=== PATIENT | male | born 1935 | race Caucasian/White ===

== ENCOUNTER → 2016-10-24 | Outpatient (CLI) | payer MEDICARE, OTHER ==
[~2016-10-24] MED LIST: ACET325S8 PO; ASPI1TAB69 PO; ASPI81TA82 PO; AVOD0.5C PO; CALC0.25 PO; CALC0.5C6 PO; CARD4TAB2 PO; CIAL5TAB PO; DOCU100C PO; DOK100TA PO; DOXA1TAB43 PO; DUTA1CAP2 PO; FINA5TAB77 PO; FLUO40CA PO; GABA400C5 PO; GABA600T PO; LANSO15 PO; LISI40TA PO; MIRA25TA PO; MIRA50TA PO; PENI500T PO; PENT400 PO; PENT400T19 PO; PERC10TA27 PO; PROZ40CA PO; SENN8.6T19 PO; SENN8.6T8 PO; SIMV20 PO; SIMV20TA PO; TAMS0.4C4 PO; TAMS0.4C67 PO; VESI10TA PO; VESI10TA4 PO; VITA100017 PO; VITA10007 PO; VITA2000 PO; VITA200017 PO
[2016-10-24 13:35] LABS: BASOPHIL % 0.2 % (0.0-2.0); EOSINOPHIL % 0.4 % (0.0-4.0); HEMATOCRIT 27.1 % (39.0-51.0); HEMO FLAGS DIFF FINAL; LYMPH % 14.5 % (9.0-44.0); LYMPHOCYTE # 0.8 TH/MM3 (1.0-4.8); MEAN CELL VOLUME 90.1 FL (80.0-100.0); MEAN CORPUSCULAR HEMOGLOBIN 30.4 PG (27.0-34.0); MEAN CORPUSCULAR HGB CONC 33.7 % (32.0-36.0); MONO % 9.4 % (0.0-8.0); NEUT % 75.5 % (16.0-70.0); PLATELET COUNT 180 TH/MM3 (150-450); WHITE BLOOD COUNT 5.3 TH/MM3 (4.0-11.0)
--- NOTE | 2016-10-25 13:45 | EKG ---
Date Performed: 10/24/2016 Time Performed: 14:08:56 PTAGE: 81 years EKG: Sinus rhythm WITH OCCASIONAL VENTRICULAR PREMATURE COMPLEXES WITH FREQUENT SUPRAVENTRICULAR PREMATURE COMPLEXES M ARKED LEFT AXIS DEVIATION RIGHT BUNDLE BRANCH BLOCK MINIMAL VOLTAGE CRITERIA FOR LVH, CONSIDER NORMAL VARIANT ABNORMAL ECG Since PREVIOUS TRACING , no significant change noted PREVIOUS TRACING 08/03/2012 10.35.50 DOCTOR: Gabriela Kraft Interpretating Date/Time 10/25/2016 13:43:12
== END ==
LOC: CPRE 12:38
PROVIDERS: ATTEND Pain Medicine Interventional Pain Medicine
DX: Z01.812 Encounter for preprocedural laboratory examination (principal); Z01.810 Encounter for preprocedural cardiovascular examination; M96.1 Postlaminectomy syndrome, not elsewhere classified; I49.3 Ventricular premature depolarization; I45.10 Unspecified right bundle-branch block; R94.31 Abnormal electrocardiogram [ECG] [EKG]
CPT/HCPCS: 36415; 84132; 85025; 93005

== ENCOUNTER → 2016-10-31 | Day surgery (SDC) | payer MEDICARE, OTHER ==
[~2016-10-31] VITALS: Ht 175.3 cm; Wt 79.0 kg
[~2016-10-31] MED LIST changes: -ACET325S8 PO; -ASPI81TA82 PO; -AVOD0.5C PO; +BUPIVACAINE/EPINEPHRINE 0.5% PF 30 ML VIAL ONE; -CALC0.25 PO; -CARD4TAB2 PO; -DOK100TA PO; +FAMOTIDINE 20 MG/2 ML VIAL ONE; -FINA5TAB77 PO; -GABA400C5 PO; +LACTATED RINGER'S 1000 ML INJ 1,000 ML ONE; +LIDOCAINE 1%/EPINEPHrine 1:100,000 SOLN 30 ML VIAL ONE; +LIDOCAINE HCL 1% 20 ML VIAL ONE; -MIRA25TA PO; -PENT400 PO; +PROPOFOL 200 MG/20 ML AMP IV ONE; -PROZ40CA PO; -SENN8.6T8 PO; -SIMV20 PO; +SODIUM CHLORIDE 0.9% 20 ML VIAL ONE; +SODIUM CHLORIDE 0.9% INJ 50 ML ONE; -TAMS0.4C67 PO; -VESI10TA4 PO; -VITA100017 PO; -VITA200017 PO; +ceFAZolin INJ 1,000 MG VIAL ONE; +oxyCODONE/ACETAMINOPHEN 5 MG/325 MG TAB ONE
[2016-10-31 11:26] VITALS: BP 174/78; PULSE 64; RESP 16; TEMP 97.7; O2SAT 100
[2016-10-31 15:45] VITALS: BP 132/74; PULSE 89; RESP 16; TEMP 97.6; O2SAT 100
--- NOTE | 2016-11-01 09:18 | RADRPT ---
EXAM DATE/TIME: 10/31/2016 13:46 COMPARISON: SPINE LUMBAR LTD (AP & LAT), December 31, 2014, 6:30. INDICATIONS : Spinal cord stimulator lead placement. MEDICAL HISTORY : None. SURGICAL HISTORY : Fusion, lumbar. ENCOUNTER: Initial ACUITY: 1 day PAIN SCORE: Non-responsive. LOCATION: Thoracic spine. FINDINGS: A single coned down AP view of the lower thoracic spine was obtained and demonstrates a stimulator le ad projected over the central vertebral column. The level of the vertebral bodies cannot be ascertain ed by this single view. CONCLUSION: Stimulator lead projected over the vertebral column. Lukasz Mcknight MD on November 01, 2016 at 9:16 Board Certified Radiologist. This report was verified electronically.
--- NOTE | 2016-11-01 17:30 | MP ---
cc: ELDER ESPARZA M.D. Corrected Copy: 11/03/16 DATE OF SURGERY: 10/31/2016 DATE OF : 1935 PROCEDURE: Implantation of Medtronic magnetic resonance imaging compatible Octrodes for spinal cord stimulation. 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 PROCEDURE NOTE IV was started in the holding area the patient was given IV antibiotics taken to the operating room, placed in the prone position. All pressure points were checked and padded. He was sedated and monitored by Anesthesia. His back was prepped with Chloraprep and draped with sterile drapes. Fluoroscopy then was used to visualize the L1-2 translaminar space. The skin was infiltrated with 1% Xylocaine containing epinephrine and small 3 inch incision was made, then a modified Tuohy needle from the [employer] kit was advanced using fluoroscopic guidance and the [id number] technique into the epidural space at the L1-2 level and then advanced in the cephalad direction along the midline until the cephalad tip of the electrode was at the mid T9 level and the caudal electrodes were at the mid T10 level. At this point the patient was awakened and stimulated with all the electrodes and he was receiving stimulation in the left lower extremity and the right lower extremity, then the patient was resedated and then the stylet was removed from the lead. Fluoroscopy was used to confirm the lead did not move. Then the needle was removed and again the fluoroscopy confirmed that the lead did not move. Then an anchoring device was placed down the lead and anchored to the interspinous ligament using three 2-0 Ethibond sutures. Again fluoroscopy was used to confirm the lead did not move during the anchoring process. Then a small subcutaneous pocket was made around the lead. The lead then was connected to the distal extension wire and secured by tightening an Junior screw and covering the connection with a Silastic cover secured at both ends with 2-0 Ethibond suture. Impedance was checked at the bedside and found to be appropriate in all of the electrodes then the lead was coiled into the subcutaneous pocket and a tunneling device was used to pass the distal extension wires to exit on the patient's left flank. Then the lumbar incision was irrigated with some Betadine closure took place with 3-0 Monocryl in subcuticular tissue and 3-0 nylon on the skin. The incision was covered with sterile adhesive dressings and the patient was taken to the recovery room with stable vital signs. W. MD AMY Jaramillo/ana /2:03 PM /2:49 PM
== END | disposition home or self-care (01) ==
LOC: CSDC 10:03
PROVIDERS: ATTEND Pain Medicine Interventional Pain Medicine
DX: M54.16 Radiculopathy, lumbar region (principal)
CPT/HCPCS: 01936; 63650; 72020; 77003; C1778; J0690; J7120

== ENCOUNTER → 2016-11-07 | Outpatient (CLI) | payer MEDICARE, OTHER ==
[~2016-11-07] MED LIST changes: -BUPIVACAINE/EPINEPHRINE 0.5% PF 30 ML VIAL ONE; -FAMOTIDINE 20 MG/2 ML VIAL ONE; -LACTATED RINGER'S 1000 ML INJ 1,000 ML ONE; -LIDOCAINE 1%/EPINEPHrine 1:100,000 SOLN 30 ML VIAL ONE; -LIDOCAINE HCL 1% 20 ML VIAL ONE; -PROPOFOL 200 MG/20 ML AMP IV ONE; -SODIUM CHLORIDE 0.9% 20 ML VIAL ONE; -SODIUM CHLORIDE 0.9% INJ 50 ML ONE; -ceFAZolin INJ 1,000 MG VIAL ONE; -oxyCODONE/ACETAMINOPHEN 5 MG/325 MG TAB ONE
[2016-11-07 08:11] LABS: AUTOMATED NEUTROPHIL # 2.4 TH/MM3 (1.8-7.7); BASOPHIL % 0.6 % (0.0-2.0); EOSINOPHIL % 0.2 % (0.0-4.0); HEMO FLAGS DIFF FINAL; LYMPH % 22.1 % (9.0-44.0); LYMPHOCYTE # 0.8 TH/MM3 (1.0-4.8); MEAN CELL VOLUME 88.1 FL (80.0-100.0); MEAN CORPUSCULAR HEMOGLOBIN 29.6 PG (27.0-34.0); MEAN CORPUSCULAR HGB CONC 33.6 % (32.0-36.0); NEUT % 64.1 % (16.0-70.0); PLATELET COUNT 214 TH/MM3 (150-450); RED BLOOD COUNT 3.52 MIL/MM3 (4.50-5.90); RED CELL DISTRIBUTION WIDTH 13.9 % (11.6-17.2); WHITE BLOOD COUNT 3.7 TH/MM3 (4.0-11.0)
[2016-11-07 08:42] LABS: ANION GAP 12 MEQ/L (5-15); AST (GOT) 21 U/L (15-37); BICARBONATE 19.9 MEQ/L (21.0-32.0); BLOOD UREA NITROGEN 37 MG/DL (7-18); CHLORIDE 105 MEQ/L (98-107); GLOMERULAR FILTRATION RATE 16 ML/MIN (>89); GLUCOSE,FASTING 101 MG/DL (74-99); POTASSIUM 4.2 MEQ/L (3.5-5.1); SODIUM (NA) 137 MEQ/L (136-145)
[2016-11-07 08:45] LABS: ALKALINE PHOSPHATASE 77 U/L (45-117); ALT (GPT) 16 U/L (12-78); HDL CHOLESTEROL 49.7 MG/DL (40.0-60.0); LDL CHOLESTEROL 129 MG/DL (0-99); TOTAL BILIRUBIN ADULT 0.5 MG/DL (0.2-1.0); URIC ACID 7.5 MG/DL (2.6-7.2)
== END ==
LOC: CLAB 07:43
PROVIDERS: ATTEND Internal Medicine Nephrology
DX: N18.3 Chronic kidney disease, stage 3 (moderate) (principal); E78.5 Hyperlipidemia, unspecified; N25.81 Secondary hyperparathyroidism of renal origin; M10.9 Gout, unspecified
CPT/HCPCS: 36415; 80053; 80061; 83970; 84550; 85025

== ENCOUNTER → 2016-11-10 | Day surgery (SDC) | payer MEDICARE, OTHER ==
[~2016-11-10] VITALS: Ht 175.3 cm; Wt 75.5 kg
[~2016-11-10] MED LIST changes: +BUPIVACAINE/EPINEPHRINE 0.5% PF 30 ML VIAL ONE; +FAMOTIDINE 20 MG/2 ML VIAL ONE; +LACTATED RINGER'S 1000 ML INJ 1,000 ML ONE; +MEPERIDINE HCL 50 MG/ML VIAL ONE; +MIDAZOLAM HCL 2 MG/2 ML VIAL ONE; +PROPOFOL 200 MG/20 ML AMP IV ONE; +SODIUM CHLORIDE 0.9% INJ 100 ML ONE; +SODIUM CHLORIDE 0.9% INJ 50 ML ONE; +VANCOMYCIN 500 MG VIAL ONE; +ceFAZolin INJ 1,000 MG VIAL ONE
[2016-11-10 11:08] VITALS: BP 148/75; PULSE 34; PULSE 66; RESP 20; TEMP 98.1; O2SAT 97
[2016-11-10 13:16] VITALS: TEMP 98
[2016-11-10 14:40] VITALS: BP 203/80; PULSE 54; RESP 16; O2SAT 100
--- NOTE | 2016-11-11 12:57 | MP ---
cc: ELDER ESPARZA M.D. DATE OF SURGERY 11/10/2016 DATE OF 1935 PROCEDURE Implantation of Medtronics dual-channel non-rechargeable pulse generator for spinal cord stimulation. PREPROCEDURE DIAGNOSIS Intractable pain with bilateral lumbar radiculopathy. POSTOPERATIVE DIAGNOSIS Intractable pain with bilateral lumbar radiculopathy. PROCEDURE NOTE IV was started in the holding area. The patient was given IV antibiotics, taken to the operating room, placed in the right lateral decubitus position. All pressure points were checked and padded and he was sedated by anesthesia. Then the distal extension wire in his left flank was prepped with alcohol and cut with sterile scissors. Then the lumbar area and the left abdominal area were prepped with Chloraprep and draped with sterile drapes. The skin was infiltrated over the lumbar incision and in the left subcostal area using 0.5% Marcaine containing epinephrine. Then the lumbar incision was opened and the stimulating lead was exteriorized and the distal extension was disconnected by loosening an Junior screw. Then a small incision was made in the left subcostal area and a subcutaneous pocket was created. The tunneling device was used to tunnel the stimulating lead from the lumbar area to the abdominal subcutaneous pocket where it was connected to a Medtronics dual-channel non-rechargeable pulse generator by tightening the Junior screw. The second port and the pulse generator was closed with a dummy plug also secured with the screw. Then the pulse generator was placed in the subcutaneous pocket and anchored to the underlying fascia using two 2-0 Ethilon sutures. A small amount of Betadine was placed in both incisions and then each incision was closed using 3-0 Monocryl in the subcuticular tissue and 3-0 nylon on the skin. The impedance was checked at the bedside after connecting the pulse generator and all electrodes were functioning except for the third electrode. Then the incisions were covered with sterile adhesive dressings and the patient was taken to the recovery room with stable vital signs. W. MD AMY Jaramillo/LIAM /1:14 PM /12:51 PM
== END | disposition home or self-care (01) ==
LOC: CSDC 10:13
PROVIDERS: ATTEND Pain Medicine Interventional Pain Medicine
DX: M54.16 Radiculopathy, lumbar region (principal); M96.1 Postlaminectomy syndrome, not elsewhere classified; I10 Essential (primary) hypertension; I48.91 Unspecified atrial fibrillation; J44.9 Chronic obstructive pulmonary disease, unspecified
CPT/HCPCS: 00300; 63650; 63685; C1767; J0690; J2175; J2250; J3370; J7120

== ENCOUNTER → 2017-02-14 | Outpatient (CLI) | payer MEDICARE, OTHER ==
[~2017-02-14] MED LIST changes: -BUPIVACAINE/EPINEPHRINE 0.5% PF 30 ML VIAL ONE; -FAMOTIDINE 20 MG/2 ML VIAL ONE; -LACTATED RINGER'S 1000 ML INJ 1,000 ML ONE; -MEPERIDINE HCL 50 MG/ML VIAL ONE; -MIDAZOLAM HCL 2 MG/2 ML VIAL ONE; -PROPOFOL 200 MG/20 ML AMP IV ONE; -SODIUM CHLORIDE 0.9% INJ 100 ML ONE; -SODIUM CHLORIDE 0.9% INJ 50 ML ONE; -VANCOMYCIN 500 MG VIAL ONE; -ceFAZolin INJ 1,000 MG VIAL ONE
[2017-02-14 10:07] LABS: AUTOMATED NEUTROPHIL # 4.6 TH/MM3 (1.8-7.7); BASOPHIL % 0.4 % (0.0-2.0); HEMATOCRIT 29.5 % (39.0-51.0); HEMO FLAGS DIFF FINAL; LYMPH % 14.3 % (9.0-44.0); LYMPHOCYTE # 0.8 TH/MM3 (1.0-4.8); MEAN CELL VOLUME 89.2 FL (80.0-100.0); MEAN CORPUSCULAR HEMOGLOBIN 29.3 PG (27.0-34.0); MEAN CORPUSCULAR HGB CONC 32.8 % (32.0-36.0); MONO % 8.1 % (0.0-8.0); NEUT % 77.2 % (16.0-70.0); PLATELET COUNT 193 TH/MM3 (150-450); RED CELL DISTRIBUTION WIDTH 14.8 % (11.6-17.2); WHITE BLOOD COUNT 5.9 TH/MM3 (4.0-11.0)
[2017-02-14 10:34] LABS: ALKALINE PHOSPHATASE 84 U/L (45-117); ALT (GPT) 23 U/L (12-78); ANION GAP 10 MEQ/L (5-15); AST (GOT) 16 U/L (15-37); BICARBONATE 22.2 MEQ/L (21.0-32.0); BLOOD UREA NITROGEN 42 MG/DL (7-18); CHLORIDE 109 MEQ/L (98-107); GLOMERULAR FILTRATION RATE 19 ML/MIN (>89); GLUCOSE,FASTING 88 MG/DL (74-99); HDL CHOLESTEROL 63.6 MG/DL (40.0-60.0); LDL CHOLESTEROL 122 MG/DL (0-99); POTASSIUM 4.4 MEQ/L (3.5-5.1); SODIUM (NA) 141 MEQ/L (136-145); TOTAL BILIRUBIN ADULT 0.4 MG/DL (0.2-1.0)
== END ==
LOC: CLAB 09:20
PROVIDERS: ATTEND Internal Medicine Nephrology
DX: N18.3 Chronic kidney disease, stage 3 (moderate) (principal); E78.5 Hyperlipidemia, unspecified; N25.81 Secondary hyperparathyroidism of renal origin; M10.9 Gout, unspecified
CPT/HCPCS: 36415; 80053; 80061; 83970; 84100; 85025; 86803; 87340

== ENCOUNTER → 2017-05-09 | Outpatient (CLI) | payer MEDICARE, OTHER ==
[2017-05-09 07:56] LABS: AUTOMATED NEUTROPHIL # 4.3 TH/MM3 (1.8-7.7); BASOPHIL % 0.4 % (0.0-2.0); EOSINOPHIL % 0.1 % (0.0-4.0); HEMATOCRIT 30.8 % (39.0-51.0); HEMO FLAGS DIFF FINAL; LYMPH % 16.8 % (9.0-44.0); MEAN CELL VOLUME 89.8 FL (80.0-100.0); MEAN CORPUSCULAR HEMOGLOBIN 29.8 PG (27.0-34.0); MEAN CORPUSCULAR HGB CONC 33.2 % (32.0-36.0); MONO % 8.7 % (0.0-8.0); PLATELET COUNT 198 TH/MM3 (150-450); RED BLOOD COUNT 3.43 MIL/MM3 (4.50-5.90); RED CELL DISTRIBUTION WIDTH 15.1 % (11.6-17.2); WHITE BLOOD COUNT 5.8 TH/MM3 (4.0-11.0)
[2017-05-09 08:16] LABS: ALT (GPT) 29 U/L (12-78); ANION GAP 9 MEQ/L (5-15); AST (GOT) 22 U/L (15-37); BICARBONATE 21.1 MEQ/L (21.0-32.0); BLOOD UREA NITROGEN 64 MG/DL (7-18); CHLORIDE 111 MEQ/L (98-107); GLOMERULAR FILTRATION RATE 16 ML/MIN (>89); GLUCOSE,FASTING 92 MG/DL (74-99); POTASSIUM 4.4 MEQ/L (3.5-5.1); SODIUM (NA) 141 MEQ/L (136-145)
[2017-05-09 08:19] LABS: ALKALINE PHOSPHATASE 73 U/L (45-117); HDL CHOLESTEROL 71.9 MG/DL (40.0-60.0); LDL CHOLESTEROL 121 MG/DL (0-99); TOTAL BILIRUBIN ADULT 0.4 MG/DL (0.2-1.0); TRANSFERRIN IRON PROFILE 191 MG/DL (200-360)
== END ==
LOC: CLAB 07:11
PROVIDERS: ATTEND Internal Medicine Nephrology
DX: E78.5 Hyperlipidemia, unspecified (principal); N18.3 Chronic kidney disease, stage 3 (moderate); R76.8 Other specified abnormal immunological findings in serum; N25.81 Secondary hyperparathyroidism of renal origin; M10.9 Gout, unspecified; D50.9 Iron deficiency anemia, unspecified
CPT/HCPCS: 36415; 80053; 80061; 82306; 83540; 83550; 83970; 84550; 85025

== ENCOUNTER → 2017-09-05 | Outpatient (CLI) | payer MEDICARE, OTHER ==
[~2017-09-05] MED LIST changes: +CALC0.5C PO; -CALC0.5C6 PO; -DOCU100C PO; +DOCU100C15 PO; -VESI10TA PO; +VESI10TA2 PO
[2017-09-05 08:45] LABS: AUTOMATED NEUTROPHIL # 5.2 TH/MM3 (1.8-7.7); BASOPHIL % 0.4 % (0.0-2.0); EOSINOPHIL % 0.1 % (0.0-4.0); HEMATOCRIT 28.7 % (39.0-51.0); HEMO FLAGS DIFF FINAL; MEAN CELL VOLUME 90.8 FL (80.0-100.0); MEAN CORPUSCULAR HEMOGLOBIN 30.6 PG (27.0-34.0); MEAN CORPUSCULAR HGB CONC 33.8 % (32.0-36.0); MONO % 8.9 % (0.0-8.0); NEUT % 76.6 % (16.0-70.0); PLATELET COUNT 202 TH/MM3 (150-450); RED BLOOD COUNT 3.16 MIL/MM3 (4.50-5.90); RED CELL DISTRIBUTION WIDTH 13.9 % (11.6-17.2); WHITE BLOOD COUNT 6.9 TH/MM3 (4.0-11.0)
[2017-09-05 09:05] LABS: ANION GAP 10 MEQ/L (5-15); AST (GOT) 18 U/L (15-37); BICARBONATE 21.4 MEQ/L (21.0-32.0); BLOOD UREA NITROGEN 52 MG/DL (7-18); CHLORIDE 106 MEQ/L (98-107); GLOMERULAR FILTRATION RATE 17 ML/MIN (>89); GLUCOSE,FASTING 83 MG/DL (74-99); POTASSIUM 4.1 MEQ/L (3.5-5.1); SODIUM (NA) 137 MEQ/L (136-145)
[2017-09-05 09:07] LABS: ALT (GPT) 21 U/L (12-78)
[2017-09-05 09:09] LABS: ALKALINE PHOSPHATASE 75 U/L (45-117); HDL CHOLESTEROL 75.5 MG/DL (40.0-60.0); LDL CHOLESTEROL 88 MG/DL (0-99); TOTAL BILIRUBIN ADULT 0.3 MG/DL (0.2-1.0)
== END ==
LOC: CLAB 08:08
PROVIDERS: ATTEND Internal Medicine Nephrology
DX: I73.9 Peripheral vascular disease, unspecified (principal); N18.4 Chronic kidney disease, stage 4 (severe); D63.1 Anemia in chronic kidney disease
CPT/HCPCS: 36415; 80053; 80061; 83970; 84100; 85025

== ENCOUNTER 2017-12-15 11:19 | Observation (INO) | payer MEDICARE, OTHER ==
[2017-12-15] VITALS (7 sets, daily range): BP systolic 105–152; BP diastolic 50–97; PULSE 65–89; RESP 18–20; TEMP 97.5–98.4; O2SAT 94–100
[~2017-12-15] VITALS: Ht 175.3 cm; Wt 73.2 kg
[~2017-12-15 11:19] MED LIST changes: +LANS15CA PO; -LANSO15 PO; -PENI500T PO
[2017-12-15 12:56] LABS: AUTOMATED NEUTROPHIL # 6.1 TH/MM3 (1.8-7.7); BASOPHIL % 0.3 % (0.0-2.0); EOSINOPHIL % 0.3 % (0.0-4.0); HEMATOCRIT 26.5 % (39.0-51.0); HEMOGLOBIN 8.9 GM/DL (13.0-17.0); LYMPH % 10.4 % (9.0-44.0); LYMPHOCYTE # 0.8 TH/MM3 (1.0-4.8); MEAN CELL VOLUME 88.4 FL (80.0-100.0); MEAN CORPUSCULAR HEMOGLOBIN 29.9 PG (27.0-34.0); MEAN CORPUSCULAR HGB CONC 33.8 % (32.0-36.0); MONO % 8.6 % (0.0-8.0); MONOCYTE # 0.7 TH/MM3 (0-0.9); NEUT % 80.4 % (16.0-70.0); PLATELET COUNT 326 TH/MM3 (150-450); RED CELL DISTRIBUTION WIDTH 15.1 % (11.6-17.2); WHITE BLOOD COUNT 7.6 TH/MM3 (4.0-11.0)
[2017-12-15 13:12] LABS: BICARBONATE 20.6 MEQ/L (21.0-32.0); CALCIUM 8.6 MG/DL (8.5-10.1); CREATININE 3.83 MG/DL (0.60-1.30)
[2017-12-15 13:17] LABS: TROPONIN I 0.08 NG/ML (0.02-0.05)
[2017-12-15] MEDS: RESP: ALBUTEROL 2.5 MG/IPRATROPIUM 0.5 MG NEB (SCH) INH (14:14)
[2017-12-15] MEDS ORDERED: ASPIRIN 81 MG CHEW TAB PO ONE (14:15)
[2017-12-15] MEDS ORDERED: methylPREDNISolone SOD SUCC 125 MG/2 ML VIAL IV PUSH ONE (14:15)
--- NOTE | 2017-12-15 14:21 | PD ---
HPI Chief Complaint: Chest Pain Time Seen by Provider: 13:47 Travel History International Travel<30 days: No Contact w/Intl Traveler<30days: No Traveled to known affect area: No History of Present Illness HPI 82-year-old male presents to the emergency department for evaluation of cough, chest pain that is worse with coughing, generalized abdominal pain that started approximately month ago. He states he was at [facility] on December 08, 2017. At that time he had labs completed, chest x-ray, CT abdomen/ pelvis. Chest x-ray showed no acute cardiopulmonary disease. CT abdomen/ pelvis showed macronodular infiltrate left lower lobe, trace pleural effusions, hiatal hernia containing the upper aspect of the stomach, cholelithiasis, no evidence of biliary obstruction, renal cortical thinning bilaterally, no evidence of obstructive uropathy, mild aneurysmal enlargement of the infrarenal abdominal aorta. According to her labs, his BNP was greater than 35,000. Patient reports left-sided chest pain, worse with coughing. He also reports mild diffuse abdominal pain as well as shortness of breath. No exacerbating or alleviating factors. Moderate severity. Patient has past medical history of anemia secondary to renal failure, atrial fibrillation, BPH, chronic renal failure, depression, elevated cholesterol, duodenal ulcer, gout, hypertension, osteoarthritis, PVD, spinal stenosis with spinal stimulator. PFSH Past Medical History Arthritis: Yes Asthma: No Atrial Fibrillation: Yes Autoimmune Disease: No Blood Disorders: No Anxiety: No Depression: Yes Heart Rhythm Problems: No Cancer: No Cardiovascular Problems: No High Cholesterol: Yes Chemotherapy: No Chest Pain: No COPD: Yes Cerebrovascular Accident: Yes (tia) Diabetes: No Endocrine: No Gastrointestinal Disorders: No (ACID REFLUX, DISTANT HX OF ULCER) GERD: Yes Glaucoma: No Genitourinary: No Headaches: No Hepatitis: No Hiatal Hernia: No Heparin Induced Thrombocytopen: No Hypertension: Yes Immune Disorder: No Kidney Stones: No Medical other: Yes (RECENT COLD, PT. ON PCN) Musculoskeletal: Yes (ARTHRITIS) Neurologic: No Psychiatric: No Reproductive: No Respiratory: No Migraines: No Radiation Therapy: No Renal Failure: No Seizures: No Sickle Cell Disease: No Sleep Apnea: No Thyroid Disease: No Ulcer: Yes Past Surgical History Abdominal Surgery: No AICD: No Arteriovenous Shunt: No Body Medical Devices: CERVICAL AND LUMBAR FUSION, LEADS FOR SPINAL CORD STIMULATOR Cardiac Surgery: Yes (CAROITID ENDARTERECTOMY LEFT) Endocrine Surgery: No Eye Surgery: Yes (BILAT. CATARACT SX) Genitourinary Surgery: No Insulin Pump: No Joint Replacement: No Neurologic Surgery: No Oral Surgery: Yes (DENTAL SX) Pacemaker: No Thoracic Surgery: Yes Other Surgery: Yes (2000 &2001 l4, [id number], 50,s cyst) Social History Alcohol Use: Yes (WINE) Tobacco Use: No Substance Use: No Allergies-Medications (Allergen,Severity, Reaction): Coded Allergies: oxybutynin (Unverified Allergy, Severe, MOUTH BURNING, 10/04/17) terbinafine (Unverified Allergy, Severe, Rash, 10/04/17) ONLY ORAL, TOPICAL OK TO USE Reported Meds & Prescriptions Reported Meds & Active Scripts Active Reported Lansoprazole 15 Mg Capdr 15 Mg PO DAILY Percocet (Oxycodone-Acetaminophen) 10-325 mg Tab 1 Tab PO Q6H PRN Senna-S 8.6-50 mg (Sennosides-Docusate Sodium) 1 Tab Tab 1 Tab PO DAILY Aspirin 81 Mg Tabdr 81 Mg PO DAILY Vitamin D3 (Cholecalciferol) 2,000 Unit Cap 2,000 Units PO DAILY Docusate Sodium 100 Mg Cap 100 Mg PO DAILY Vitamin C (Ascorbic Acid) 1,000 Mg Tab 1,000 Mg PO DAILY Lisinopril 40 Mg Tab 40 Mg PO DAILY Doxazosin (Doxazosin Mesylate) 8 Mg Tab 8 Mg PO DAILY Simvastatin 20 Mg Tab 20 Mg PO DAILY Calcitriol 0.5 Mcg Cap 0.5 Mcg PO DAILY Cialis (Tadalafil) 5 Mg Tab 5 Mg PO DAILY Do not exceed 1 dose/day. Myrbetriq (Mirabegron) 50 Mg Tab 50 Mg PO DAILY Vesicare (Solifenacin) 10 Mg Tab 10 Mg PO DAILY Dutasteride 0.5 Mg Cap 0.5 Mg PO DAILY Fluoxetine (Fluoxetine HCl) 40 Mg Cap 40 Cap PO DAILY Tamsulosin (Tamsulosin HCl) 0.4 Mg Cap 0.4 Mg PO HS Gabapentin 600 Mg Tab 300 Mg PO BID Review of Systems Except as stated in HPI: all other systems reviewed are Neg Physical Exam Narrative GENERAL: Well-nourished, well-developed elderly male patient, afebrile. SKIN: Focused skin assessment warm/dry. HEAD: Normocephalic. Atraumatic. EYES: No scleral icterus. No injection or drainage. NECK: Supple, trachea midline. No JVD or lymphadenopathy. CARDIOVASCULAR: Regular rate and rhythm without murmurs, gallops, or rubs. RESPIRATORY: Breath sounds equal bilaterally. No accessory muscle use. Lungs sounds with diffuse rhonchi and expiratory wheezes throughout. GASTROINTESTINAL: Abdomen soft, non-tender, nondistended. MUSCULOSKELETAL: No cyanosis, or edema. BACK: Nontender without obvious deformity. No CVA tenderness. Data Data Last Documented VS Vital Signs Date Time Temp Pulse Resp B/P (MAP) Pulse Ox O2 Delivery O2 Flow Rate FiO2 12/15/17 14:18 99 Room Air 12/15/17 14:18 65 131/65 (87) 129/68 (88) 12/15/17 14:18 18 12/15/17 11:38 98.4 Orders Orders Electrocardiogram (12/15/17 11:36) Complete Blood Count With Diff (12/15/17 11:36) Basic Metabolic Panel (Bmp) (12/15/17 11:36) Ckmb (Isoenzyme) Profile (12/15/17 11:36) Troponin I (12/15/17 11:36) Electrocardiogram (12/15/17 14:06) B-Type Natriuretic Peptide (12/15/17 14:06) Magnesium (Mg) (12/15/17 14:06) Prothrombin Time / Inr (Pt) (12/15/17 14:06) Act Partial Throm Time (Ptt) (12/15/17 14:06) Chest, Single Ap (12/15/17 14:06) Ecg Monitoring (12/15/17 14:06) Bilateral Bp Monitoring (12/15/17 14:06) Iv Access Insert/Monitor (12/15/17 14:06) Oximetry (12/15/17 14:06) Oxygen Administration (12/15/17 14:06) Aspirin Chew (Aspirin Chew) (12/15/17 14:15) Sodium Chloride 0.9% Flush (Ns Flush) (12/15/17 14:15) Lactic Acid Sepsis Protocol (12/15/17 14:06) Blood Culture (12/15/17 14:06) Methylprednisolone So Succ Inj (Solumedr (12/15/17 14:15) Albuterol-Ipratropium Neb (Duoneb Neb) (12/15/17 14:15) Furosemide Inj (Lasix Inj) (12/15/17 16:30) Furosemide Inj (Lasix Inj) (12/16/17 09:00) Ceftriaxone Inj (Rocephin Inj) (12/15/17 16:30) Azithromycin Inj (Zithromax Inj) (12/15/17 16:30) Urinalysis - C+S If Indicated (12/15/17 16:37) Intake + Output 06,14,22 (12/15/17 16:37) Admit Order (Ed Use Only) (12/15/17 16:44) Labs Laboratory Tests Test 12/15/17 11:53 12/15/17 14:19 White Blood Count 7.6 TH/MM3 Red Blood Count 3.00 MIL/MM3 Hemoglobin 8.9 GM/DL Hematocrit 26.5 % Mean Corpuscular Volume 88.4 FL Mean Corpuscular Hemoglobin 29.9 PG Mean Corpuscular Hemoglobin Concent 33.8 % Red Cell Distribution Width 15.1 % Platelet Count 326 TH/MM3 Mean Platelet Volume 8.0 FL Neutrophils (%) (Auto) 80.4 % Lymphocytes (%) (Auto) 10.4 % Monocytes (%) (Auto) 8.6 % Eosinophils (%) (Auto) 0.3 % Basophils (%) (Auto) 0.3 % Neutrophils # (Auto) 6.1 TH/MM3 Lymphocytes # (Auto) 0.8 TH/MM3 Monocytes # (Auto) 0.7 TH/MM3 Eosinophils # (Auto) 0.0 TH/MM3 Basophils # (Auto) 0.0 TH/MM3 CBC Comment DIFF FINAL Differential Comment Blood Urea Nitrogen 42 MG/DL Creatinine 3.83 MG/DL Random Glucose 115 MG/DL Calcium Level 8.6 MG/DL Sodium Level 137 MEQ/L Potassium Level 4.1 MEQ/L Chloride Level 107 MEQ/L Carbon Dioxide Level 20.6 MEQ/L Anion Gap 9 MEQ/L Estimat Glomerular Filtration Rate 15 ML/MIN Total Creatine Kinase 94 U/L Troponin I 0.08 NG/ML Prothrombin Time 10.5 SEC Prothromb Time International Ratio 1.0 RATIO Activated Partial Thromboplast Time 26.1 SEC Lactic Acid Level 1.4 mmol/L Magnesium Level 2.0 MG/DL B-Type Natriuretic Peptide 2228 PG/ML MDM Medical Decision Making Medical Screen Exam Complete: Yes Emergency Medical Condition: Yes Medical Record Reviewed: Yes Interpretation(s) Last Impressions Chest X-Ray 12/15/17 1406 Signed Impressions: Service Date/Time: Friday, December 15, 2017 14:26 - CONCLUSION: Cardiomegaly with mild failure. Brenden He MD FACR Differential Diagnosis Pneumonia versus CHF versus ACS versus failed outpatient treatment Narrative Course 82-year-old elderly male presents to the emergency department for evaluation of cough, chest pain, abdominal pain that started one month ago. Patient patient was diagnosed with pneumonia one week ago and was started on Z-Ruddy. He states symptoms are worsening. EKG shows sinus rhythm with occasional PVCs, right bundle branch block. CBC, BMP, CK, troponin, BNP, magnesium, lactic acid, PTT, PT/INR, blood cultures 2, chest x-ray are ordered and pending. Patient states he took aspirin 81 mg today. Patient is given DuoNeb 2, aspirin 81 mg by mouth , and Solu-Medrol 125 mg IV. CBC shows anemia with hemoglobin 8.9, hematocrit 26.5. BMP shows BUN 42, creatinine 3.83, glucose 115. CK is 94. Troponin is 0.08. BNP is 2228. Magnesium is 2.0. Lactic acid is 1.4. Coags are unremarkable. Chest x-ray shows cardiomegaly with mild failure. Dr. Browne, junior legal secretary, saw patient in the emergency department as this is his patient. He ordered Lasix. Dr. Olsen accepted admission. Diagnosis Primary Impression: Pneumonia Qualified Codes: J18.1 - Lobar pneumonia, unspecified organism Additional Impressions: CHF (congestive heart failure) Qualified Codes: I50.9 - Heart failure, unspecified Chronic kidney disease, stage IV (severe) Admitting Information Admitting Physician Requests: Admit MerrittArely Dec 15, 2017 14:21
--- NOTE | 2017-12-15 14:56 | RADRPT ---
EXAM DATE/TIME: 12/15/2017 14:26 [facility] COMPARISON: CHEST SINGLE AP, January 04, 2015, 17:32. INDICATIONS : Shortness of breath and cough. MEDICAL HISTORY : None. SURGICAL HISTORY : None. ENCOUNTER: Initial ACUITY: 1 day PAIN SCORE: 2/10 LOCATION: Bilateral chest FINDINGS: Cardiomegaly with mild interstitial edema. The thoracic aorta is tortuous and uncoiled. There is no consolidation, pleural effusion or pneumothorax. Spinal stimulator is evident. The portion of the b kenneth skeleton visualized is unremarkable. CONCLUSION: Cardiomegaly with mild failure. Brenden He MD FACR on December 15, 2017 at 14:52 Board Certified Radiologist. This report was verified electronically.
[2017-12-15 15:24] LABS: PROTHROMBIN TIME - PATIENT 10.5 SEC (9.8-11.6)
[2017-12-15] MEDS ORDERED: cefTRIAXone INJ 1,000 MG in SODIUM CHLORIDE 0.9% INJ 100 ML IV ONE (16:30)
[2017-12-15] MEDS ORDERED: AZITHROMYCIN INJ 500 MG in SODIUM CHLOR 0.9% 250 ML INJ 250 ML IV ONE (16:30)
[2017-12-15] MEDS ORDERED: FUROSEMIDE 100 MG/10 ML VIAL IV PUSH ONE (16:30)
--- NOTE | 2017-12-15 16:37 | PD.CONS ---
HPI Service Nephrology Consult Requested By Reason for Consult Hx CKD 4 Primary Care Physician Randy Kelly MD History of Present Illness This is an 82 y/o male with A fib, HTN, anemia, and CKD 4. His baseline creatinine is 3.5, GFR 17, from September. He presents today with shortness of breath, abd and chest wall pain with coughing x 1 month. Was seen in ER at [facility] last week, was given antibiotics and sent home. He is afebrile, not in distress. Chest xray suggesting CHF not pneumonia. We were consulted to assist. His renal function is close to his baseline. (Sofia Arzate) Review of Systems Constitutional: COMPLAINS OF: Fatigue, DENIES: Weight gain, Weight loss, Change in appetite Respiratory: COMPLAINS OF: Cough, Sputum production, Shortness of breath, DENIES: Snoring, Wheezing Neurologic: COMPLAINS OF: Paresthesias, DENIES: Localized weakness (Sofia Arzate) Past Family Social History Allergies: Coded Allergies: oxybutynin (Unverified Allergy, Severe, MOUTH BURNING, 10/04/17) terbinafine (Unverified Allergy, Severe, Rash, 10/04/17) ONLY ORAL, TOPICAL OK TO USE Past Medical History CKD 4, baseline creatinine 3.5, GFR 17 HTN A fib s/p CEA left, TIA ANemia BPH GERD Infrarenal AAA Arthritis Depression Past Surgical History Cervical and lumbar fusion Spinal stimulator Cataract removal bilaterally Reported Medications Lansoprazole 15 Mg Capdr 15 Mg PO DAILY Percocet (Oxycodone-Acetaminophen) 10-325 mg Tab 1 Tab PO Q6H PRN Senna-S 8.6-50 mg (Sennosides-Docusate Sodium) 1 Tab Tab 1 Tab PO DAILY Aspirin 81 Mg Tabdr 81 Mg PO DAILY Vitamin D3 (Cholecalciferol) 2,000 Unit Cap 2,000 Units PO DAILY Docusate Sodium 100 Mg Cap 100 Mg PO DAILY Vitamin C (Ascorbic Acid) 1,000 Mg Tab 1,000 Mg PO DAILY Lisinopril 40 Mg Tab 40 Mg PO DAILY Doxazosin (Doxazosin Mesylate) 8 Mg Tab 8 Mg PO DAILY Simvastatin 20 Mg Tab 20 Mg PO DAILY Calcitriol 0.5 Mcg Cap 0.5 Mcg PO DAILY Cialis (Tadalafil) 5 Mg Tab 5 Mg PO DAILY Do not exceed 1 dose/day. Myrbetriq (Mirabegron) 50 Mg Tab 50 Mg PO DAILY Vesicare (Solifenacin) 10 Mg Tab 10 Mg PO DAILY Dutasteride 0.5 Mg Cap 0.5 Mg PO DAILY Fluoxetine (Fluoxetine HCl) 40 Mg Cap 40 Cap PO DAILY Pentoxifylline CR (Pentoxifylline) 400 Mg Tab 400 Mg PO TID Tamsulosin (Tamsulosin HCl) 0.4 Mg Cap 0.4 Mg PO HS Gabapentin 600 Mg Tab 300 Mg PO BID Active Ordered Medications None Family History Non contributory Social History former smoker He is single, lives in [facility] Full code He is ambulatory (Sofia Arzate) Physical Exam Vital Signs Vital Signs Date Time Temp Pulse Resp B/P (MAP) Pulse Ox O2 Delivery O2 Flow Rate FiO2 12/15/17 14:18 99 Room Air 12/15/17 14:18 65 131/65 (87) 129/68 (88) 12/15/17 14:18 18 100 Room Air 12/15/17 14:03 69 18 99 Room Air 12/15/17 13:55 66 18 131/65 (87) 100 Room Air 12/15/17 11:38 98.4 78 18 105/50 (68) 98 Physical Exam Pleaseant elderly male Awake/alert, not in distress Lungs with rales, rhonchi, on oxygen S1/S2, irreg irreg, no murmur ext: trace edema, Skin: intact Laboratory Laboratory Tests Test 12/15/17 11:53 12/15/17 14:19 White Blood Count 7.6 Red Blood Count 3.00 Hemoglobin 8.9 Hematocrit 26.5 Mean Corpuscular Volume 88.4 Mean Corpuscular Hemoglobin 29.9 Mean Corpuscular Hemoglobin Concent 33.8 Red Cell Distribution Width 15.1 Platelet Count 326 Mean Platelet Volume 8.0 Neutrophils (%) (Auto) 80.4 Lymphocytes (%) (Auto) 10.4 Monocytes (%) (Auto) 8.6 Eosinophils (%) (Auto) 0.3 Basophils (%) (Auto) 0.3 Neutrophils # (Auto) 6.1 Lymphocytes # (Auto) 0.8 Monocytes # (Auto) 0.7 Eosinophils # (Auto) 0.0 Basophils # (Auto) 0.0 CBC Comment DIFF FINAL Differential Comment Blood Urea Nitrogen 42 Creatinine 3.83 Random Glucose 115 Calcium Level 8.6 Sodium Level 137 Potassium Level 4.1 Chloride Level 107 Carbon Dioxide Level 20.6 Anion Gap 9 Estimat Glomerular Filtration Rate 15 Total Creatine Kinase 94 Troponin I 0.08 Prothrombin Time 10.5 Prothromb Time International Ratio 1.0 Activated Partial Thromboplast Time 26.1 Lactic Acid Level 1.4 Magnesium Level 2.0 B-Type Natriuretic Peptide 2228 Date/Time Source Procedure Growth Status 12/15/17 14:19 Blood Peripheral Aerobic Blood Culture Pending Received 12/15/17 14:19 Blood Peripheral Anaerobic Blood Culture Pending Received (Sofia Arzate) Result Diagram: 12/15/17 1153 12/15/17 1153 Imaging Last 72 hours Impressions Chest X-Ray 12/15/17 1406 Signed Impressions: Service Date/Time: Friday, December 15, 2017 14:26 - CONCLUSION: Cardiomegaly with mild failure. Brenden He MD FACR (Sofia Arzate) Assessment and Plan Problem List: (1) Chronic kidney disease, stage IV (severe) ICD Codes: N18.4 - Chronic kidney disease, stage 4 (severe) Plan: His baseline runs 3.5, GFR 17 He is not far from his baseline, non oliguric currently He is not in need of dialysis at this time, he has been educated outpatient and is leaning towards PD Start diuretics, resume home medications IVF not required Repeat labs in AM , obtain UA Avoid nephrotoxins. (2) Shortness of breath ICD Codes: R06.02 - Shortness of breath Plan: Chest xray reviewed. More CHF in nature than pneumonia. No evidence of infections. start lasix, give 80 mg IV today, then 40 mg from tomorrow Low Na diet discussed, fluidr restriction also discussed (Soifa Arzate) Assessment and Plan patient was seen and examined. Patient with advanced renal dysfunction presents with fluid overload. Has history of atrial fibrillation, PAD, s/p left CEA. He is nearing need for dialysis, has decided to chose PD when renal replacement therapy becomes necessary. Start IV diuretic. Monitor his response. Avoid nephrotoxic agents. (Joel Saenz MD) oSfia Arzate Dec 15, 2017 16:37 Joel Saenz MD Dec 15, 2017 20:03
--- NOTE | 2017-12-15 16:40 | PD ---
Physical Exam Narrative I, Dr. Macias, have reviewed the advance practice practitioner's documentation and am in agreement, met with the patient face to face, made the diagnosis, and the medical decision making was done by me. *My assessment and Findings: CHF vs. ACS vs. pneumonia 82yo M here with worsening sob and chest pain after being discharge from [facility] a week ago. Said he finish his azithromycin. Labs reviewed, no leukocytosis. H/H 8.9/26.5 which is slightly lower than baseline. BUN/ creatinine elevated at 42/3.83. Lactic acid normal. Troponin mildly elevated at 0.08 which may be secondary to CHF since BNP is elevated at 2228. CXR showed cardiomegaly and mild failure. Pt was seen by his neprhologist in the ED and ordered lasix 80mg IV. Pt admitted for CHF exacerbation. Data Data Last Documented VS Vital Signs Date Time Temp Pulse Resp B/P (MAP) Pulse Ox O2 Delivery O2 Flow Rate FiO2 12/15/17 14:18 99 Room Air 12/15/17 14:18 65 131/65 (87) 129/68 (88) 12/15/17 14:18 18 12/15/17 11:38 98.4 Orders Orders Electrocardiogram (12/15/17 11:36) Complete Blood Count With Diff (12/15/17 11:36) Basic Metabolic Panel (Bmp) (12/15/17 11:36) Ckmb (Isoenzyme) Profile (12/15/17 11:36) Troponin I (12/15/17 11:36) Electrocardiogram (12/15/17 14:06) B-Type Natriuretic Peptide (12/15/17 14:06) Magnesium (Mg) (12/15/17 14:06) Prothrombin Time / Inr (Pt) (12/15/17 14:06) Act Partial Throm Time (Ptt) (12/15/17 14:06) Chest, Single Ap (12/15/17 14:06) Ecg Monitoring (12/15/17 14:06) Bilateral Bp Monitoring (12/15/17 14:06) Iv Access Insert/Monitor (12/15/17 14:06) Oximetry (12/15/17 14:06) Oxygen Administration (12/15/17 14:06) Aspirin Chew (Aspirin Chew) (12/15/17 14:15) Sodium Chloride 0.9% Flush (Ns Flush) (12/15/17 14:15) Lactic Acid Sepsis Protocol (12/15/17 14:06) Blood Culture (12/15/17 14:06) Methylprednisolone So Succ Inj (Solumedr (12/15/17 14:15) Albuterol-Ipratropium Neb (Duoneb Neb) (12/15/17 14:15) Furosemide Inj (Lasix Inj) (12/15/17 16:30) Furosemide Inj (Lasix Inj) (12/16/17 09:00) Ceftriaxone Inj (Rocephin Inj) (12/15/17 16:30) Azithromycin Inj (Zithromax Inj) (12/15/17 16:30) Urinalysis - C+S If Indicated (12/15/17 16:37) Intake + Output 06,14,22 (12/15/17 16:37) Admit Order (Ed Use Only) (12/15/17 16:44) Labs Laboratory Tests Test 12/15/17 11:53 12/15/17 14:19 White Blood Count 7.6 TH/MM3 Red Blood Count 3.00 MIL/MM3 Hemoglobin 8.9 GM/DL Hematocrit 26.5 % Mean Corpuscular Volume 88.4 FL Mean Corpuscular Hemoglobin 29.9 PG Mean Corpuscular Hemoglobin Concent 33.8 % Red Cell Distribution Width 15.1 % Platelet Count 326 TH/MM3 Mean Platelet Volume 8.0 FL Neutrophils (%) (Auto) 80.4 % Lymphocytes (%) (Auto) 10.4 % Monocytes (%) (Auto) 8.6 % Eosinophils (%) (Auto) 0.3 % Basophils (%) (Auto) 0.3 % Neutrophils # (Auto) 6.1 TH/MM3 Lymphocytes # (Auto) 0.8 TH/MM3 Monocytes # (Auto) 0.7 TH/MM3 Eosinophils # (Auto) 0.0 TH/MM3 Basophils # (Auto) 0.0 TH/MM3 CBC Comment DIFF FINAL Differential Comment Blood Urea Nitrogen 42 MG/DL Creatinine 3.83 MG/DL Random Glucose 115 MG/DL Calcium Level 8.6 MG/DL Sodium Level 137 MEQ/L Potassium Level 4.1 MEQ/L Chloride Level 107 MEQ/L Carbon Dioxide Level 20.6 MEQ/L Anion Gap 9 MEQ/L Estimat Glomerular Filtration Rate 15 ML/MIN Total Creatine Kinase 94 U/L Troponin I 0.08 NG/ML Prothrombin Time 10.5 SEC Prothromb Time International Ratio 1.0 RATIO Activated Partial Thromboplast Time 26.1 SEC Lactic Acid Level 1.4 mmol/L Magnesium Level 2.0 MG/DL B-Type Natriuretic Peptide 2228 PG/ML MDM Supervised Visit with JEANNIE: Yes Interpretation(s) EKG: NSR 69bpm. RBBB unchanged from prior. PVC. Diagnosis Primary Impression: CHF (congestive heart failure) Admitting Information Admitting Physician Requests: Suad Park DO Dec 15, 2017 16:40
[2017-12-15] MEDS ORDERED: ACETAMINOPHEN/HYDROcodone 325 MG/5 MG TAB PO PRN (17:30)
[2017-12-15] MEDS ORDERED: MORPHINE SULFATE 2 MG/ML INJ IV PUSH PRN (17:30)
[2017-12-15] MEDS ORDERED: NALOXONE HCL 0.4 MG/ML AMP IV PUSH PRN (17:30)
[2017-12-15] MEDS ORDERED: ACETAMINOPHEN 325 MG TAB PO PRN (17:30)
[2017-12-15] MEDS ORDERED: MAGNESIUM HYDROXIDE SUSP 30 ML CUP PO PRN (17:30)
[2017-12-15] MEDS ORDERED: SENNOSIDES 8.6 MG TAB PO PRN (17:30)
[2017-12-15] MEDS ORDERED: ONDANSETRON HCL 4 MG/2 ML VIAL IVP PRN (17:30)
--- NOTE | 2017-12-15 19:08 | HHI.HP ---
HPI Service [facility] Primary Care Physician Randy Kelly MD Admission Diagnosis pneumonia, new onset CHF, elevated troponin, CRF Diagnoses: Chief Complaint: Short of breath Travel History International Travel<30 Days: No Contact w/Intl Traveler <30 Da: No Traveled to Known Affected Are: No History of Present Illness 82 years old male presented to the ED complaining of worsening short of breath, chest discomfort with dry cough, patient was at [place] treated recently at the local hospital for CHF and what he said pneumonia, currently he denies any fever or chills, phlegm production, in ED here he was found to have high BNP, nephrology consulted in ED he placed patient on 80 mg of Lasix IV. Chest x-ray showed cardiomegaly BUN/creatinine showed 42/3.83. Patient denied H/O osteopenia or PND, reported occasional leg swelling. Review of Systems All systems reviewed and was positive for what is mentioned in history of present illness otherwise negative Past Family Social History Past Medical History History of back surgery 6 Hypertension Hyperlipidemia History of TIA due to left carotid stenosis patient status post CEA on the left side Past Surgical History As above Allergies: Coded Allergies: oxybutynin (Unverified Allergy, Severe, MOUTH BURNING, 10/04/17) terbinafine (Unverified Allergy, Severe, Rash, 10/04/17) ONLY ORAL, TOPICAL OK TO USE Family History Patient reported his father had a heart attack in his 54 years old Social History Patient quit smoking 40 years ago and he smoked for 30 years, he drinks wine 5 times a month Physical Exam Vital Signs Vital Signs Date Time Temp Pulse Resp B/P (MAP) Pulse Ox O2 Delivery O2 Flow Rate FiO2 12/15/17 16:53 81 18 146/69 (94) 96 Room Air 12/15/17 14:18 99 Room Air 12/15/17 14:18 65 131/65 (87) 129/68 (88) 12/15/17 14:18 18 100 Room Air 12/15/17 14:03 69 18 99 Room Air 12/15/17 13:55 66 18 131/65 (87) 100 Room Air 12/15/17 11:38 98.4 78 18 105/50 (74) 98 Physical Exam GENERAL: This is a well-nourished, well-developed patient, in no apparent distress. SKIN: No rashes, warm and dry HEAD: Atraumatic. Normocephalic. EYES: Pupils equal round and reactive. Extraocular motions intact. No scleral icterus. ENT: Nose without bleeding, or drainage, Airway patent. NECK: Trachea midline. Supple CARDIOVASCULAR: Regular with ectopy RESPIRATORY: Bibasilar crackles. GASTROINTESTINAL: Abdomen soft, non-tender, nondistended. Positive bowel sounds MUSCULOSKELETAL: Extremities without clubbing, cyanosis, or edema. Pedal pulses appreciated NEUROLOGICAL: Awake and alert. Moves all extremity. Normal speech.no focal neurological deficit Laboratory Laboratory Tests Test 12/15/17 11:53 12/15/17 14:19 White Blood Count 7.6 Red Blood Count 3.00 Hemoglobin 8.9 Hematocrit 26.5 Mean Corpuscular Volume 88.4 Mean Corpuscular Hemoglobin 29.9 Mean Corpuscular Hemoglobin Concent 33.8 Red Cell Distribution Width 15.1 Platelet Count 326 Mean Platelet Volume 8.0 Neutrophils (%) (Auto) 80.4 Lymphocytes (%) (Auto) 10.4 Monocytes (%) (Auto) 8.6 Eosinophils (%) (Auto) 0.3 Basophils (%) (Auto) 0.3 Neutrophils # (Auto) 6.1 Lymphocytes # (Auto) 0.8 Monocytes # (Auto) 0.7 Eosinophils # (Auto) 0.0 Basophils # (Auto) 0.0 CBC Comment DIFF FINAL Differential Comment Blood Urea Nitrogen 42 Creatinine 3.83 Random Glucose 115 Calcium Level 8.6 Sodium Level 137 Potassium Level 4.1 Chloride Level 107 Carbon Dioxide Level 20.6 Anion Gap 9 Estimat Glomerular Filtration Rate 15 Total Creatine Kinase 94 Troponin I 0.08 Prothrombin Time 10.5 Prothromb Time International Ratio 1.0 Activated Partial Thromboplast Time 26.1 Lactic Acid Level 1.4 Magnesium Level 2.0 B-Type Natriuretic Peptide 2228 Date/Time Source Procedure Growth Status 12/15/17 14:19 Blood Peripheral Aerobic Blood Culture Pending Received 12/15/17 14:19 Blood Peripheral Anaerobic Blood Culture Pending Received Result Diagram: 12/15/17 1153 12/15/17 1153 Imaging Last Impressions Chest X-Ray 12/15/17 1406 Signed Impressions: Service Date/Time: Friday, December 15, 2017 14:26 - CONCLUSION: Cardiomegaly with mild failure. Brenden He MD FACR Caprini VTE Risk Assessment Caprini VTE Risk Assessment: Mod/High Risk (score >= 2) Caprini Risk Assessment Model Point Value = 1 Point Value = 2 Point Value = 3 Point Value = 5 Age 41-60 Minor surgery BMI > 25 kg/m2 Swollen legs Varicose veins or History of unexplained or recurrent spontaneous Oral contraceptives or hormone replacement Sepsis (< 1 month) Serious lung disease, including pneumonia (< 1 month) Abnormal pulmonary function Acute myocardial infarction Congestive heart failure (< 1 month) History of inflammatory bowel disease Medical patient at bed rest Age 61-74 Arthroscopic surgery Major open surgery (> 45 min) Laparoscopic surgery (> 45 min) Malignancy Confined to bed (> 72 hours) Immobilizing plaster cast Central venous access Age >= 75 History of VTE Family history of VTE Factor V Leiden Prothrombin [id number] Lupus anticoagulant Anticardiolipin antibodies Elevated serum homocysteine Heparin-induced thrombocytopenia Other congenital or acquired thrombophilia Stroke (< 1 month) Elective arthroplasty Hip, pelvis, or leg fracture Acute spinal cord injury (< 1 month) Prophylaxis Regimen Total Risk Factor Score Risk Level Prophylaxis Regimen 0-1 Low Early ambulation 2 Moderate Order ONE of the following: *Sequential Compression Device (SCD) *Heparin 5000 units SQ BID 3-4 Higher Order ONE of the following medications: *Heparin 5000 units SQ TID *Enoxaparin/Lovenox 40 mg SQ daily (WT < 150 kg, CrCl > 30 mL/min) *Enoxaparin/Lovenox 30 mg SQ daily (WT < 150 kg, CrCl > 10-29 mL/min) *Enoxaparin/Lovenox 30 mg SQ BID (WT < 150 kg, CrCl > 30 mL/min) AND/OR *Sequential Compression Device (SCD) 5 or more Highest Order ONE of the following medications: *Heparin 5000 units SQ TID (Preferred with Epidurals) *Enoxaparin/Lovenox 40 mg SQ daily (WT < 150 kg, CrCl > 30 mL/min) *Enoxaparin/Lovenox 30 mg SQ daily (WT < 150 kg, CrCl > 10-29 mL/min) *Enoxaparin/Lovenox 30 mg SQ BID (WT < 150 kg, CrCl > 30 mL/min) AND *Sequential Compression Device (SCD) Assessment and Plan Assessment and Plan 82 years old male who recently was treated for pneumonia and CHF presented with worsening short of breath Acute CHF exacerbation Elevated BNP History of recent pneumonia SEVERINO on CKD stage IV Hypertension Hyperlipidemia History of TIA status post left CEA BPH DVT prophylaxis Plan: Patient started on 80 mg of Lasix IV per nephrology appreciate their consult Strict KAITY Monitor BMP and BNP Patient received a dose of Zithromax and Rocephin in ED, however I do not see significant clinical sign of active pneumonia especially that the patient finished a full dose of antibiotic, no leukocytosis or fever or chills, no infiltrate on a chest x-ray, I will continue monitoring of antibiotic Check 2D echo Continue aspirin Proscar Cardura Prozac tamsulosin pravastatin from patient med rec DVT prophylaxis with heparin and SCD Discussed Condition With Patient in ED physician Juan Carlos Olsen MD Dec 15, 2017 19:08
[2017-12-15 19:47] LABS: BILIRUBIN, URINE NEG (NEG); BLOOD, URINE SMALL (NEG); GLUCOSE,URINE NEG (NEG); HYALINE CAST, URINE 3 /lpf (RARE); KETONE, URINE NEG (NEG); NITRITE,URINE NEG (NEG); PH, URINE 5.5 (5.0-8.5); SQUAMOUS EPITHELIAL CELL URINE 1 /hpf (0-5); URINE COLOR YELLOW (YELLW/STRAW); URINE LEUKOCYTE ESTERASE NEG (NEG)
[2017-12-15] MEDS: TAMSULOSIN HCL 0.4 MG CAP PO SCH (21:02)
[2017-12-15] MEDS: DOCUSATE SODIUM 50 MG/SENNA 8.6 MG TAB PO SCH (21:03)
[2017-12-15] MEDS: FINASTERIDE 5 MG TAB PO SCH (21:03)
[2017-12-15] MEDS: HEPARIN SODIUM - SQ 10,000 UNITS/ML VIAL SQ SCH (21:03)
[2017-12-16] VITALS (9 sets, daily range): BP systolic 134–162; BP diastolic 62–77; PULSE 72–93; RESP 18–20; TEMP 97.6–98.1; O2SAT 95–98
[2017-12-16] MEDS: HEPARIN SODIUM - SQ 10,000 UNITS/ML VIAL SQ SCH ×3 (05:26→20:37)
[2017-12-16] MEDS: PRAVASTATIN SOD 40 MG TAB PO SCH (08:46)
[2017-12-16] MEDS: SODIUM CHLORIDE 0.9% FLUSH 10 ML FLUSH IVF PRN ×2 (08:46→20:37)
[2017-12-16] MEDS: ASPIRIN EC 81 MG TABEC PO SCH (08:47)
[2017-12-16] MEDS: DOCUSATE SODIUM 50 MG/SENNA 8.6 MG TAB PO SCH ×2 (08:48→20:36)
[2017-12-16] MEDS: FLUoxetine HCL 20 MG CAP PO SCH (08:48)
[2017-12-16] MEDS: DOXAZOSIN MESYLATE 4 MG TAB PO SCH (08:49)
[2017-12-16] MEDS ORDERED: FUROSEMIDE 40 MG/4 ML VIAL IV PUSH SCH (09:00)
[2017-12-16 10:04] LABS: AUTOMATED NEUTROPHIL # 9.6 TH/MM3 (1.8-7.7); BASOPHIL % 0.1 % (0.0-2.0); HEMATOCRIT 25.2 % (39.0-51.0); HEMOGLOBIN 8.7 GM/DL (13.0-17.0); LYMPH % 4.2 % (9.0-44.0); LYMPHOCYTE # 0.5 TH/MM3 (1.0-4.8); MEAN CELL VOLUME 88.3 FL (80.0-100.0); MEAN CORPUSCULAR HEMOGLOBIN 30.5 PG (27.0-34.0); MEAN CORPUSCULAR HGB CONC 34.5 % (32.0-36.0); MEAN PLATELET VOLUME 8.5 FL (7.0-11.0); MONO % 6.3 % (0.0-8.0); MONOCYTE # 0.7 TH/MM3 (0-0.9); NEUT % 89.4 % (16.0-70.0); PLATELET COUNT 329 TH/MM3 (150-450); RED BLOOD COUNT 2.86 MIL/MM3 (4.50-5.90); RED CELL DISTRIBUTION WIDTH 15.1 % (11.6-17.2); WHITE BLOOD COUNT 10.8 TH/MM3 (4.0-11.0)
[2017-12-16 10:22] LABS: BICARBONATE 18.1 MEQ/L (21.0-32.0); CALCIUM 8.9 MG/DL (8.5-10.1); CREATININE 3.99 MG/DL (0.60-1.30)
--- NOTE | 2017-12-16 13:19 | HHI.PR ---
Subjective Remarks "I feels slightly better " Patient stated he is urinating, I discussed with the PT he walked 200 feet in the hallway today Objective Vitals Vital Signs Date Time Temp Pulse Resp B/P (MAP) Pulse Ox O2 Delivery O2 Flow Rate FiO2 12/16/17 12:00 97.6 85 20 145/62 (89) 95 12/16/17 08:00 87 12/16/17 08:00 97.9 84 18 162/76 (104) 97 12/16/17 04:13 77 12/16/17 04:00 97.8 93 19 134/64 (87) 95 12/16/17 04:00 Room Air 12/16/17 00:00 97.8 88 20 137/77 (97) 95 12/16/17 00:00 Room Air 12/16/17 00:00 77 12/15/17 20:01 86 12/15/17 19:34 97.5 89 20 152/97 (115) 94 12/15/17 19:30 12/15/17 19:15 96 12/15/17 16:53 81 18 146/69 (94) 96 Room Air 12/15/17 14:18 99 Room Air 12/15/17 14:18 65 131/65 (87) 129/68 (88) 12/15/17 14:18 18 100 Room Air 12/15/17 14:03 69 18 99 Room Air 12/15/17 13:55 66 18 131/65 (87) 100 Room Air I/O 12/15/17 12/15/17 12/15/17 12/16/17 12/16/17 12/16/17 07:00 15:00 23:00 07:00 15:00 23:00 Intake Total 250 ml 640 ml Output Total 800 ml Balance 250 ml -160 ml Intake Oral 640 ml IV Total 250 ml Output Urine Total 800 ml Result Diagram: 12/16/1781712/16/17817 Objective Remarks GENERAL: This is a well-nourished, well-developed patient, in no apparent distress. SKIN: No rashes, warm and dry HEAD: Atraumatic. Normocephalic. EYES: PERRLA . No scleral icterus. ENT: No bleeding, or drainage, Airway patent. NECK: Trachea midline. Supple CARDIOVASCULAR: RRR, no gallops, or rubs. RESPIRATORY: Fair air entry bilaterally. No W, R, or R GASTROINTESTINAL: Abdomen soft, non-tender, nondistended. Positive bowel sounds MUSCULOSKELETAL: Extremities without clubbing, cyanosis, or edema. Pedal pulses appreciated NEUROLOGICAL: Awake and alert. Moves all extremity. Normal speech.no focal neurological deficit A/P Assessment and Plan 82 years old male who recently was treated for pneumonia and CHF presented with worsening short of breath Acute CHF exacerbation Elevated BNP History of recent pneumonia SEVERINO on CKD stage IV Hypertension Hyperlipidemia History of TIA status post left CEA BPH DVT prophylaxis Plan: 12/16: Continue current plan as below, Repeat CBC BMP in a.m., monitor temperature, blood pressure Patient started on 80 mg of Lasix IV per nephrology appreciate their consult Continue on Lasix 40 IV daily Strict KAITY Monitor BMP and BNP Patient received a dose of Zithromax and Rocephin in ED, however I do not see significant clinical sign of active pneumonia especially that the patient finished a full dose of antibiotic, no leukocytosis or fever or chills, no infiltrate on a chest x-ray, I will continue monitoring off antibiotic Check 2D echo Continue aspirin Proscar Cardura Prozac tamsulosin pravastatin from patient med rec DVT prophylaxis with heparin and SCD Juan Carlos Olsen MD Dec 16, 2017 13:19
--- NOTE | 2017-12-16 17:27 | HHI.NPPN ---
Subjective Additional Remarks c/o cough Objective Data Data Vital Signs Date Time Temp Pulse Resp B/P (MAP) Pulse Ox O2 Delivery O2 Flow Rate FiO2 12/16/17 16:00 98.1 86 20 153/76 (101) 98 12/16/17 12:00 97.6 85 20 145/62 (89) 95 12/16/17 12:00 82 12/16/17 08:00 87 12/16/17 08:00 97.9 84 18 162/76 (104) 97 12/16/17 04:13 77 12/16/17 04:00 97.8 93 19 134/64 (87) 95 12/16/17 04:00 Room Air 12/16/17 00:00 97.8 88 20 137/77 (97) 95 12/16/17 00:00 Room Air 12/16/17 00:00 77 12/15/17 20:01 86 12/15/17 19:34 97.5 89 20 152/97 (115) 94 12/15/17 19:30 12/15/17 19:15 96 -: 12/16/17 0818 12/16/17 0818 Physical Exam General Appearance: Well Developed, No Acute Distress Neck Neck Exam: Neck Supple Pulmonary Resp Exam: Rhonchi, Decreased Bases Cardiology CV Exam: Arrhythmia Gastrointestinal/Abdomen GI Exam: Soft, Non-Tender, Bowel Sounds Present Extremeties Extremities Exam: Trace Edema Assessment/Plan Problem List: (1) Chronic kidney disease, stage IV (severe) ICD Codes: N18.4 - Chronic kidney disease, stage 4 (severe) Plan: His baseline runs 3.5, GFR 17 He is not far from his baseline, non oliguric currently He is not in need of dialysis at this time, he has been educated outpatient and is leaning towards PD On diuretic creatinine 3.9 decrease Lasix need breathing Rx DuoNeb ordered Follows with Dr. Saenz (2) Shortness of breath ICD Codes: R06.02 - Shortness of breath Plan: started lasix, 40 mg Low Na diet discussed, fluid restriction also discussed Ella Fraser MD Dec 16, 2017 17:26
[2017-12-16] MEDS ORDERED: RESP: ALBUTEROL 2.5 MG/IPRATROPIUM 0.5 MG NEB (SCH) NEB ONE (18:30)
[2017-12-16] MEDS: TAMSULOSIN HCL 0.4 MG CAP PO SCH (20:36)
[2017-12-16] MEDS: FINASTERIDE 5 MG TAB PO SCH (20:36)
--- NOTE | 2017-12-16 21:41 | EKG ---
Date Performed: 12/15/2017 Time Performed: 11:59:44 PTAGE: 82 years EKG: ELECTRONIC ATRIAL PACEMAKER INDETERMINATE AXIS INTRAVENTRICULAR CONDUCTION DELAY ABNORMAL E CG There is much electronic artifact. However, the patient continues with a right bundle branch block and a left anterior hemiblock. Probabably no significant change. PREVIOUS TRACING : 10/24/2016 14.08 DOCTOR: Jarad Mahan Interpretating Date/Time 12/16/2017 21:41:10
--- NOTE | 2017-12-16 21:43 | EKG ---
Date Performed: 12/15/2017 Time Performed: 14:07:47 PTAGE: 82 years EKG: Sinus rhythm WITH OCCASIONAL VENTRICULAR PREMATURE COMPLEXES RIGHT BUNDLE BRANCH BLOCK LEFT ANTERIOR FASCICULAR B LOCK POSSIBLE SEPTAL MYOCARDIAL INFARCTION ABNORMAL ECG Compared to PREVIOUS TRACING , previously noted electrical artifact is no longer present. Patient now appears to be in a regular rhythm, though P-waves are difficult to see and there are occasional PVCs . PREVIOUS TRACIN12/15/2017 11.59 DOCTOR: Jarad Mahan Interpretating Date/Time 12/16/2017 21:42:26
[2017-12-16] MEDS: BENZONATATE 100 MG CAP PO PRN (21:45)
[2017-12-17] VITALS (12 sets, daily range): BP systolic 90–166; BP diastolic 53–94; PULSE 69–95; RESP 17–20; TEMP 97.8–98.6; O2SAT 92–96
[2017-12-17] MEDS: HEPARIN SODIUM - SQ 10,000 UNITS/ML VIAL SQ SCH ×3 (05:57→20:35)
[2017-12-17] MEDS: RESP: ALBUTEROL 2.5 MG/IPRATROPIUM 0.5 MG NEB (SCH) NEB ×3 (07:45→19:32)
[2017-12-17 08:17] LABS: BICARBONATE 20.4 MEQ/L (21.0-32.0); CALCIUM 8.6 MG/DL (8.5-10.1); CREATININE 4.21 MG/DL (0.60-1.30); MAGNESIUM 2.1 MG/DL (1.5-2.5); PHOSPHORUS 3.5 MG/DL (2.5-4.9)
[2017-12-17] MEDS: DOCUSATE SODIUM 50 MG/SENNA 8.6 MG TAB PO SCH ×2 (08:28→20:33)
[2017-12-17] MEDS: ASPIRIN EC 81 MG TABEC PO SCH (08:28)
[2017-12-17] MEDS: PRAVASTATIN SOD 40 MG TAB PO SCH (08:29)
[2017-12-17] MEDS: FLUoxetine HCL 20 MG CAP PO SCH (08:29)
[2017-12-17] MEDS: DOXAZOSIN MESYLATE 4 MG TAB PO SCH (08:29)
[2017-12-17] MEDS: BENZONATATE 100 MG CAP PO PRN ×3 (08:30→23:37)
[2017-12-17] MEDS: ACETAMINOPHEN/HYDROcodone 325 MG/7.5 MG TAB PO PRN ×2 (10:43→20:33)
--- NOTE | 2017-12-17 13:03 | HHI.PR ---
Subjective Remarks "I have had headache and body aching overnight "but it feels better now " Afebrile Still on O2 nasal cannula, BNP dropped to 1103 however creatinine increased to 402 Objective Vitals Vital Signs Date Time Temp Pulse Resp B/P (MAP) Pulse Ox O2 Delivery O2 Flow Rate FiO2 12/17/17 12:00 98.4 93 20 90/53 (65) 93 12/17/17 08:00 Room Air 21 12/17/17 08:00 98.5 81 20 142/64 (90) 96 12/17/17 08:00 90 12/17/17 07:46 93 21 12/17/17 03:40 77 12/17/17 01:57 76 12/17/17 00:00 97.8 80 17 166/72 (103) 93 12/16/17 23:44 88 12/16/17 20:00 Room Air 12/16/17 20:00 97.7 77 18 145/63 (90) 96 12/16/17 19:42 87 12/16/17 16:00 72 12/16/17 16:00 98.1 86 20 153/76 (101) 98 I/O 12/16/17 12/16/17 12/16/17 12/17/17 12/17/17 12/17/17 07:00 15:00 23:00 07:00 15:00 23:00 Intake Total 640 ml 920 ml Output Total 800 ml 800 ml 300 ml Balance -160 ml 120 ml -300 ml Intake Oral 640 ml 920 ml Output Urine Total 800 ml 800 ml 300 ml # Voids 1 # Bowel Movements 1 Result Diagram: 12/16/17 0818 12/17/17 0650 Objective Remarks GENERAL: This is a well-nourished, well-developed patient, in no apparent distress. SKIN: No rashes, warm and dry HEAD: Atraumatic. Normocephalic. EYES: PERRLA . No scleral icterus. ENT: No bleeding, or drainage, Airway patent. NECK: Trachea midline. Supple CARDIOVASCULAR: RRR, no gallops, or rubs. RESPIRATORY: Fair air entry bilaterally. No W, R, or R GASTROINTESTINAL: Abdomen soft, non-tender, nondistended. Positive bowel sounds MUSCULOSKELETAL: Extremities without clubbing, cyanosis, or edema. Pedal pulses appreciated NEUROLOGICAL: Awake and alert. Moves all extremity. Normal speech.no focal neurological deficit A/P Assessment and Plan Annita may volume for 82 years old male who recently was treated for pneumonia and CHF presented with worsening short of breath Acute CHF exacerbation Elevated BNP History of recent pneumonia SEVERINO on CKD stage IV Hypertension Hyperlipidemia History of TIA status post left CEA BPH DVT prophylaxis Plan: 12/17: Continue current plan as below, monitor BMP and BNP, BNP dropped to 1103 however creatinine increased to 4.2 Patient started on 80 mg of Lasix IV per nephrology appreciate their consult Continue on Lasix 40 IV daily Strict KAITY Monitor BMP and BNP Patient received a dose of Zithromax and Rocephin in ED, however I do not see significant clinical sign of active pneumonia especially that the patient finished a full dose of antibiotic, no leukocytosis or fever or chills, no infiltrate on a chest x-ray, I will continue monitoring off antibiotic Check 2D echo Continue aspirin Proscar Cardura Prozac tamsulosin pravastatin from patient med rec DVT prophylaxis with heparin and SCD Juan Carlos Olsen MD Dec 17, 2017 13:03
--- NOTE | 2017-12-17 14:26 | HHI.NPPN ---
Subjective Additional Remarks c/o cough Objective Data Data Vital Signs Date Time Temp Pulse Resp B/P (MAP) Pulse Ox O2 Delivery O2 Flow Rate FiO2 12/17/17 12:00 98.4 93 20 90/53 (65) 93 12/17/17 12:00 94 12/17/17 08:00 Room Air 21 12/17/17 08:00 98.5 81 20 142/64 (90) 96 12/17/17 08:00 90 12/17/17 07:46 93 21 12/17/17 03:40 77 12/17/17 01:57 76 12/17/17 00:00 97.8 80 17 166/72 (103) 93 12/16/17 23:44 88 12/16/17 20:00 Room Air 12/16/17 20:00 97.7 77 18 145/63 (90) 96 12/16/17 19:42 87 12/16/17 16:00 72 12/16/17 16:00 98.1 86 20 153/76 (101) 98 -: 12/16/17 0818 12/17/17 0650 Physical Exam General Appearance: Well Developed, No Acute Distress Neck Neck Exam: Neck Supple Pulmonary Resp Exam: Rhonchi, Decreased Bases Cardiology CV Exam: Arrhythmia Gastrointestinal/Abdomen GI Exam: Soft, Non-Tender, Bowel Sounds Present Extremeties Extremities Exam: Trace Edema Assessment/Plan Problem List: (1) Chronic kidney disease, stage IV (severe) ICD Codes: N18.4 - Chronic kidney disease, stage 4 (severe) Plan: His baseline runs 3.5, GFR 17 He is not far from his baseline, non oliguric currently He is not in need of dialysis at this time, he has been educated outpatient and is leaning towards PD On diuretic creatinine 4.2 Patient has COPD and placed on DuoNeb decrease Lasix to every other day need breathing Rx DuoNeb ordered Follows with Dr. Saenz (2) Shortness of breath ICD Codes: R06.02 - Shortness of breath Plan: started lasix, 40 mg Low Na diet discussed, fluid restriction also discussed Ella Fraser MD Dec 17, 2017 14:26
[2017-12-17] MEDS: TAMSULOSIN HCL 0.4 MG CAP PO SCH (20:33)
[2017-12-17] MEDS: FINASTERIDE 5 MG TAB PO SCH (20:33)
[2017-12-18] VITALS (8 sets, daily range): BP systolic 103–131; BP diastolic 54–66; PULSE 73–94; RESP 17–20; TEMP 97.7–98.4; O2SAT 93–98
[2017-12-18] MEDS: HEPARIN SODIUM - SQ 10,000 UNITS/ML VIAL SQ SCH ×3 (05:22→22:15)
[2017-12-18 05:32] LABS: BICARBONATE 22.6 MEQ/L (21.0-32.0); CALCIUM 8.5 MG/DL (8.5-10.1); CREATININE 4.51 MG/DL (0.60-1.30); MAGNESIUM 2.1 MG/DL (1.5-2.5); PHOSPHORUS 4.3 MG/DL (2.5-4.9)
[2017-12-18] MEDS: RESP: ALBUTEROL 2.5 MG/IPRATROPIUM 0.5 MG NEB (SCH) NEB ×3 (07:41→19:06)
[2017-12-18] MEDS ORDERED: FUROSEMIDE 40 MG/4 ML VIAL IV PUSH SCH (09:00)
[2017-12-18] MEDS: DOXAZOSIN MESYLATE 4 MG TAB PO SCH (09:23)
[2017-12-18] MEDS: ASPIRIN EC 81 MG TABEC PO SCH (09:27)
[2017-12-18] MEDS: PRAVASTATIN SOD 40 MG TAB PO SCH (09:28)
[2017-12-18] MEDS: FLUoxetine HCL 20 MG CAP PO SCH (09:28)
[2017-12-18] MEDS: BENZONATATE 100 MG CAP PO PRN (09:28)
[2017-12-18] MEDS: DOCUSATE SODIUM 50 MG/SENNA 8.6 MG TAB PO SCH ×2 (09:28→20:34)
[2017-12-18] MEDS: ACETAMINOPHEN/HYDROcodone 325 MG/7.5 MG TAB PO PRN ×2 (09:29→20:39)
--- NOTE | 2017-12-18 11:09 | HHI.NPPN ---
Subjective Renal Failure: Chronic, Acute, Stage IV Interval History He states he feels better. No new complaints. (Sofia Arzate) Review of Systems General Constitutional: Fatigue (Sofia Arzate) Objective Data Data Vital Signs Date Time Temp Pulse Resp B/P (MAP) Pulse Ox O2 Delivery O2 Flow Rate FiO2 12/18/17 08:00 Room Air 12/18/17 08:00 98.3 83 20 130/66 (87) 95 12/18/17 07:46 98 21 12/18/17 03:40 83 12/18/17 03:39 98.4 73 20 130/65 (86) 94 12/17/17 23:51 Room Air 12/17/17 23:47 98.5 95 20 131/59 (83) 92 12/17/17 23:41 95 12/17/17 20:00 98.6 69 20 131/94 (106) 95 12/17/17 20:00 Room Air 12/17/17 19:43 85 12/17/17 19:43 85 12/17/17 19:33 93 21 12/17/17 16:00 98.3 90 20 119/58 (78) 95 12/17/17 12:00 98.4 93 20 90/53 (65) 93 12/17/17 12:00 94 (Sofia Arzate) -: 12/16/17 0818 12/18/17 0415 Imaging Last 72 hours Impressions Chest X-Ray 12/15/17 1406 Signed Impressions: Service Date/Time: Friday, December 15, 2017 14:26 - CONCLUSION: Cardiomegaly with mild failure. Brenden He MD FACR (Sofia Arzate) Physical Exam General Appearance: Well Developed, No Acute Distress, Comfortable (Sofia Arzate) Neck Neck Exam: Neck Supple (Sofia Arzate) Pulmonary Resp Exam: No Distress, Crackles, Rhonchi, Decreased Bases (Sofia Arzate) Cardiology CV Exam: Good Perfusion, Irregular, Arrhythmia (Sofia Arzate) Gastrointestinal/Abdomen GI Exam: Soft, Non-Tender, Bowel Sounds Present (Sofia Arzate) Musculoskeletal MS Exam: Normal Gait, Normal Tone, Good Strength (Sofia Arzate) Integumentary Skin Exam: Warm, Dry, Intact (Sofia Arzate) Extremeties Extremities Exam: No Edema, Pedal Pulses Palpable (Sofia Arzate) Neurologic Neuro Exam: Alert, Awake, Oriented, Speech Clear, Moving All Extremities (Sofia Arzate) Assessment/Plan Discussed Condition With: Patient Assessment Summary: SEVERINO/Acute Renal Failure, CHF, CKD Stage IV Problem List: (1) Chronic kidney disease, stage IV (severe) ICD Codes: N18.4 - Chronic kidney disease, stage 4 (severe) Plan: His baseline runs 3.5, GFR 17 His renal function is not far from his baseline He is non oliguric. Renal US has been ordered He is not in need of dialysis at this time, he has been educated outpatient and is leaning towards PD. Will follow with Wendy Marion after discharge to make plans. Avoid nephrotoxic agents, avoid IVF, (2) Shortness of breath ICD Codes: R06.02 - Shortness of breath Plan: Change diuretics to 40 mg po daily, Lasix. (Sofia Arzate) Problem List: (1) Chronic kidney disease, stage IV (severe) ICD Codes: N18.4 - Chronic kidney disease, stage 4 (severe) Plan: His baseline runs 3.5, GFR 17 His renal function is not far from his baseline He is non oliguric. Renal US has been ordered He is not in need of dialysis at this time, he has been educated outpatient and is leaning towards PD. Will follow with Wendy Marion after discharge to make plans. Avoid nephrotoxic agents, avoid IVF, (2) Shortness of breath ICD Codes: R06.02 - Shortness of breath Plan: Change diuretics to 40 mg po daily, Lasix. Plan patient was seen and examined. Continues to significant bronchoconstriction. May have bronchitis/lower respiratory infection. Renal function is worse. Nearing the need for dialysis. (Joel Saenz MD) Sofia Arzate Dec 18, 2017 11:09 Joel Saenz MD Dec 19, 2017 15:22
--- NOTE | 2017-12-18 13:07 | RADRPT ---
EXAM DATE/TIME: 12/18/2017 10:43 [facility] COMPARISON: No previous studies available for comparison. EXTERNAL COMPARISON : [facility], US KIDNEY, BILATERAL, October 06, 2015, June 01, 010, [facility], CT ABDOMEN & PELVIS W/O CONTRAST, July 02, 2015. INDICATIONS : Increased BUN/creatinine. MEDICAL HISTORY : Hypercholesterolemia. Inflammatory bowel disease. Arthritis. CVA. Afib. COPD. H TN. Dyspnea. Ulcer. GERD. Colitis. BPH. Renal disease. Paresthesisa. SURGICAL HISTORY : Carotid endarterectomy. Coronary artery stent. Bilateral cataract surgery wi th lens implants. Dental surgery. Right carpel tunnel surgery. Spinal surgery L3-5. C4-6 cyst removed . ENCOUNTER: Initial ACUITY: 1 day PAIN SCORE: 2/10 LOCATION: Bilateral flank MEASUREMENTS: RIGHT KIDNEY: 9.4 x 4.5 x 4.4 cm LEFT KIDNEY: 11.8 x 5.6 x 4.8 cm FINDINGS: RIGHT KIDNEY: The right kidney is small and mildly atrophic in appearance with diffuse increased echogenicity. The margins are difficult to delineate. There were multiple cysts the largest measures up to 3.1 x 2.6 x 2.8 cm in the upper pole. There is no solid mass, calculi or evidence of hydronephr osis. LEFT KIDNEY: The left kidney appears normal in size and shape but increased cortical echogenicity as well. There is no evidence of hydronephrosis. There are multiple cystic structures largest measur ing 3.5 x 3.9 x 3.4 cm in the central kidney. There is a small calculus in the upper pole measuring 4 x 6 x 7 mm. BLADDER: Within normal limits given the degree of distension. Incidental note was made of multiple gallstones. CONCLUSION: 1. The kidneys are abnormally increased in echotexture most characteristic of medical renal disease. There is no definite hydronephrosis. The right kidney is mildly atrophic. 2. Multiple bilateral simple appearing cysts. 3. Tiny nonobstructing left renal calculus. 4. Cholelithiasis incidentally noted. Lukasz Mcknight MD on December 18, 2017 at 13:00 Board Certified Radiologist. This report was verified electronically.
--- NOTE | 2017-12-18 13:17 | ECHRPT ---
Indication: HEART FAILURE CONCLUSIONS The left ventricular systolic function is low normal with an estimated ejection fraction in the rang e of 50- 55%. Normal left ventricular size. Mild concentric left ventricular hypertrophy. No regional wall motion abnormalities are present. The left atrial size is mildly dilated. Mild mitral valve regurgitation. Diffuse calcification of the aortic valve. Mild aortic valve regurgitation. There is mild tricuspid valve regurgitation. The estimated pulmonary arterial pressure is 65.7 mmHg. Trivial pulmonary valve regurgitation. BP: 162 / 76 HR: 104 Rhythm: Sinus MEASUREMENTS (Male / Female) Normal Values Technical Quality:Good 2D ECHO LV Diastolic Diameter PLAX 5.1 cm 4.2 - 5.9 / 3.9 - 5.3 cm LV Systolic Diameter PLAX 3.9 cm IVS Diastolic Thickness 1.2 cm 0.6 - 1.0 / 0.6 - 0.9 cm LVPW Diastolic Thickness 1.2 cm 0.6 - 1.0 / 0.6 - 0.9 cm LV Relative Wall Thickness 0.5 RV Internal Dim ED PLAX 2.9 cm LVOT Diameter 2.1 cm LA Systolic Diameter LX 4.7 cm 3.0 - 4.0 / 2.7 - 3.8 cm LV Ejection Fraction MOD 4C 47.7 % LV Cardiac Index MOD 4C 3501.2 cm/minm LV Ejection Fraction 4C AL 49.7 % LV Cardiac Index 4C AL 3790.4 cm/minm M-MODE Aortic Root Diameter MM 2.7 cm LA Systolic Diameter MM 4.5 cm LA Ao Ratio MM 1.7 AV Cusp Separation MM 2.2 cm DOPPLER AV Peak Velocity 187.0 cm/s AV Peak Gradient 14.0 mmHg AI Peak Velocity 392.5 cm/s AI Peak Gradient 61.6 mmHg AI Pressure Half Time 389.5 ms LVOT Peak Velocity 105.0 cm/s LVOT Peak Gradient 4.4 mmHg AV Area Cont Eq pk 1.9 cm MV Area PHT 4.9 cm Mitral E Point Velocity 131.0 cm/s Mitral A Point Velocity 102.0 cm/s Mitral E to A Ratio 1.3 LV E' Lateral Velocity 7.9 cm/s Mitral E to LV E' Lateral Ratio 16.6 LV E' Septal Velocity 6.1 cm/s Mitral E to LV E' Septal Ratio 21.3 TR Peak Velocity 373.0 cm/s TR Peak Gradient 55.7 mmHg Right Atrial Pressure 10.0 mmHg Pulmonary Artery Systolic Pressu 65.7 mmHg Right Ventricular Systolic Press 65.7 mmHg PV Peak Velocity 102.0 cm/s PV Peak Gradient 4.2 mmHg FINDINGS LEFT VENTRICLE The left ventricular systolic function is low normal with an estimated ejection fraction in the rang e of 50- 55%. Normal left ventricular size. Mild concentric left ventricular hypertrophy. No regional wall motion abnormalities are present. RIGHT VENTRICLE Normal right ventricular size and systolic function. LEFT ATRIUM The left atrial size is mildly dilated. RIGHT ATRIUM The right atrial size is normal. ATRIAL SEPTUM Normal atrial septal thickness without atrial level shunting by limited color doppler interrogation. AORTA The aortic root and proximal ascending aorta are normal in size on limited imaging. MITRAL VALVE Structurally normal mitral valve. Mild mitral valve regurgitation. AORTIC VALVE Trileaflet aortic valve. Diffuse calcification of the aortic valve. Mild aortic valve regurgitation. TRICUSPID VALVE Structurally normal tricuspid valve. There is mild tricuspid valve regurgitation. The estimated pulmonary arterial pressure is 65.7 mmHg. PULMONARY VALVE Trivial pulmonary valve regurgitation. VESSELS The inferior vena cava is normal in size. PERICARDIUM No pericardial effusion. Michael Horowitz MD, FACC (Electronically Signed) Final Date:18 December 2017 13:15
--- NOTE | 2017-12-18 14:04 | HHI.PR ---
Subjective Remarks Patient complained of generalized body aching he has reproducible pain when pressing on his sternum/ribs joint He stated he gets much better with pain medication Objective Vitals Vital Signs Date Time Temp Pulse Resp B/P (MAP) Pulse Ox O2 Delivery O2 Flow Rate FiO2 12/18/17 12:00 Room Air 12/18/17 12:00 98.0 76 20 106/54 (71) 95 12/18/17 08:00 Room Air 12/18/17 08:00 98.3 83 20 130/66 (87) 95 12/18/17 07:46 98 21 12/18/17 03:40 83 12/18/17 03:39 98.4 73 20 130/65 (86) 94 12/17/17 23:51 Room Air 12/17/17 23:47 98.5 95 20 131/59 (83) 92 12/17/17 23:41 95 12/17/17 20:00 98.6 69 20 131/94 (106) 95 12/17/17 20:00 Room Air 12/17/17 19:43 85 12/17/17 19:43 85 12/17/17 19:33 93 21 12/17/17 16:00 98.3 90 20 119/58 (78) 95 I/O 12/17/17 12/17/17 12/17/17 12/18/17 12/18/17 12/18/17 07:00 15:00 23:00 07:00 15:00 23:00 Intake Total 480 ml 200 ml Output Total 300 ml 800 ml 800 ml Balance -300 ml -320 ml -600 ml Intake Oral 480 ml 200 ml Output Urine Total 300 ml 800 ml 800 ml Result Diagram: 12/16/1718 12/18/17 0415 Objective Remarks GENERAL: This is a well-nourished, well-developed patient, in no apparent distress. SKIN: No rashes, warm and dry HEAD: Atraumatic. Normocephalic. EYES: PERRLA . No scleral icterus. ENT: No bleeding, or drainage, Airway patent. NECK: Trachea midline. Supple CARDIOVASCULAR: RRR, no gallops, or rubs. RESPIRATORY: Fair air entry bilaterally. No W, R, or R GASTROINTESTINAL: Abdomen soft, non-tender, nondistended. Positive bowel sounds MUSCULOSKELETAL: Extremities without clubbing, cyanosis, or edema. Pedal pulses appreciated NEUROLOGICAL: Awake and alert. Moves all extremity. Normal speech.no focal neurological deficit A/P Assessment and Plan Annita january volume for 82 years old male who recently was treated for pneumonia and CHF presented with worsening short of breath Acute CHF exacerbation Elevated BNP Arthritis History of recent pneumonia SEVERINO on CKD stage IV Hypertension Hyperlipidemia History of TIA status post left CEA BPH DVT prophylaxis Plan: 12/17: Continue current plan as below, monitor BMP and BNP, BNP dropped to 1103 however creatinine increased to 4.2 12/18: Appreciate renal consultation recommended backing off on diuretics make it every other day and monitor BMP, patient complained of arthritis we cannot use NSAIDs due to renal failure, consider Mobic and dose of steroid, Ultram Patient started on 80 mg of Lasix IV per nephrology appreciate their consult Continue on Lasix 40 IV daily Strict KAITY Monitor BMP and BNP Patient received a dose of Zithromax and Rocephin in ED, however I do not see significant clinical sign of active pneumonia especially that the patient finished a full dose of antibiotic, no leukocytosis or fever or chills, no infiltrate on a chest x-ray, I will continue monitoring off antibiotic Check 2D echo Continue aspirin Proscar Cardura Prozac tamsulosin pravastatin from patient med rec DVT prophylaxis with heparin and SCD Juan Carlos Olsen MD Dec 18, 2017 14:04
[2017-12-18] MEDS: TAMSULOSIN HCL 0.4 MG CAP PO SCH (20:34)
[2017-12-18] MEDS: FINASTERIDE 5 MG TAB PO SCH (20:34)
[2017-12-19] VITALS (12 sets, daily range): BP systolic 112–157; BP diastolic 57–83; PULSE 68–100; RESP 17–20; TEMP 97.4–98.4; O2SAT 94–97
[2017-12-19] MEDS: HEPARIN SODIUM - SQ 10,000 UNITS/ML VIAL SQ SCH ×3 (05:24→21:27)
[2017-12-19] MEDS: RESP: ALBUTEROL 2.5 MG/IPRATROPIUM 0.5 MG NEB (SCH) NEB ×3 (08:09→19:55)
[2017-12-19 08:24] LABS: BICARBONATE 18.4 MEQ/L (21.0-32.0); CALCIUM 8.6 MG/DL (8.5-10.1); CREATININE 4.76 MG/DL (0.60-1.30)
[2017-12-19] MEDS: FUROSEMIDE 40 MG TAB PO SCH (09:03)
[2017-12-19] MEDS: ASPIRIN EC 81 MG TABEC PO SCH (09:03)
[2017-12-19] MEDS: FLUoxetine HCL 20 MG CAP PO SCH (09:03)
[2017-12-19] MEDS: DOXAZOSIN MESYLATE 4 MG TAB PO SCH (09:03)
[2017-12-19] MEDS: DOCUSATE SODIUM 50 MG/SENNA 8.6 MG TAB PO SCH ×2 (09:03→21:24)
[2017-12-19] MEDS: PRAVASTATIN SOD 40 MG TAB PO SCH (09:03)
[2017-12-19] MEDS: ACETAMINOPHEN/HYDROcodone 325 MG/7.5 MG TAB PO PRN (09:04)
--- NOTE | 2017-12-19 11:07 | HHI.NPPN ---
Subjective Renal Failure: Chronic, Acute, Stage IV Interval History Pt states he feels better since admission. Lung sounds coarse, has cough during exam. (Sofia Arzate) Review of Systems General Constitutional: Fatigue (Sofia Arzate) Respiratory Lungs: SOB, Cough, Sputum (Sofia Arzate) Objective Data Data Vital Signs Date Time Temp Pulse Resp B/P (MAP) Pulse Ox O2 Delivery O2 Flow Rate FiO2 12/19/17 09:45 Room Air 12/19/17 08:09 97 21 12/19/17 08:00 98.3 73 20 143/83 (103) 95 12/19/17 04:06 68 12/19/17 04:00 Room Air 12/19/17 04:00 97.4 77 17 142/65 (90) 94 12/19/17 00:00 97.5 87 19 124/63 (83) 95 12/19/17 00:00 Room Air 12/19/17 00:00 81 12/18/17 22:15 18 12/18/17 20:30 Room Air 12/18/17 20:00 98.1 88 17 131/60 (83) 95 12/18/17 19:58 84 12/18/17 16:00 Room Air 12/18/17 16:00 97.7 94 20 103/57 (72) 93 12/18/17 16:00 81 12/18/17 12:00 85 12/18/17 12:00 Room Air 12/18/17 12:00 98.0 76 20 106/54 (71) 95 (Sofia Arzate) -: 12/16/17 0818 12/19/17 0730 Imaging Last Impressions Renal Ultrasound 12/18/17 0000 Signed Impressions: Service Date/Time: Monday, December 18, 2017 10:43 - CONCLUSION: 1. The kidneys are abnormally increased in echotexture most characteristic of medical renal disease. There is no definite hydronephrosis. The right kidney is mildly atrophic. 2. Multiple bilateral simple appearing cysts. 3. Tiny nonobstructing left renal calculus. 4. Cholelithiasis incidentally noted. Lukasz Mcknight MD Chest X-Ray 12/15/17 1406 Signed Impressions: Service Date/Time: Friday, December 15, 2017 14:26 - CONCLUSION: Cardiomegaly with mild failure. Brenden He MD FACR (Sofia Arzate) Physical Exam General Appearance: Well Developed, Well Nourished, No Acute Distress, Comfortable (Sofia Arzate B. METAL FURNITURE ASSEMBLER) Neck Neck Exam: Neck Supple (Sofia Arzate B. METAL FURNITURE ASSEMBLER) Pulmonary Resp Exam: No Distress, Crackles, Rhonchi, Decreased Bases (Sofia Arzate B. METAL FURNITURE ASSEMBLER) Cardiology CV Exam: Good Perfusion, Irregular, Arrhythmia (Sofia Arzate B. METAL FURNITURE ASSEMBLER) Gastrointestinal/Abdomen GI Exam: Soft, Non-Tender, Bowel Sounds Present (Sofia Arzate B. METAL FURNITURE ASSEMBLER) Musculoskeletal MS Exam: Normal Gait, Normal Tone, Good Strength (Sofia Arzate B. METAL FURNITURE ASSEMBLER) Integumentary Skin Exam: Warm, Dry, Intact (Sofia Arzate B. METAL FURNITURE ASSEMBLER) Extremeties Extremities Exam: No Edema, Pedal Pulses Palpable (Sofia Arzate B. METAL FURNITURE ASSEMBLER) Neurologic Neuro Exam: Alert, Awake, Oriented, Speech Clear, Moving All Extremities (Sfoia Arzate B. METAL FURNITURE ASSEMBLER) Assessment/Plan Discussed Condition With: Patient Assessment Summary: SEVERINO/Acute Renal Failure, CHF, Hypertension, CKD Stage IV Problem List: (1) Chronic kidney disease, stage IV (severe) ICD Codes: N18.4 - Chronic kidney disease, stage 4 (severe) Plan: His baseline runs 3.5, GFR 17 His renal function is not far off from his baseline He is non oliguric. Continue Lasix daily. Renal US shows right renal atrophy. He is not in need of dialysis at this time, he has been educated outpatient and is leaning towards PD. Will follow with Wendy Marion after discharge to make plans. Has upcoming appointment. Avoid nephrotoxic agents, avoid IVF, Renally dose when appropriate. (2) Shortness of breath ICD Codes: R06.02 - Shortness of breath Plan: Continue lasix 40 mg po daily Check 2V CXR today to evaluate for pneumonia although he is afebrile, evaluate for leukocytosis in AM (Sofia Arzate METAL FURNITURE ASSEMBLER) Plan patient was seen and examined. Agree with above assessment and plan. CXR did not reveal any acute finding. Possible discharge to rehab soon. (Joel Saenz MD) Sofia Arzate Dec 19, 2017 11:07 Joel Saenz MD Dec 19, 2017 15:38
--- NOTE | 2017-12-19 12:06 | RADRPT ---
EXAM DATE/TIME: 12/19/2017 11:50 [facility] COMPARISON: SPINE THORACIC AP ONLY, October 31, 2016, 13:46. INDICATIONS : Cough MEDICAL HISTORY : Hypercholesterolemia. Inflammatory bowel disease. Arthritis. CVA. Afib. COPD. SURGICAL HISTORY : Carotid endarterectomy. Coronary artery stent. Bilateral cataract surgery with lens ENCOUNTER: Subsequent ACUITY: 2 months PAIN SCORE: 7/10 LOCATION: chest FINDINGS: PA and lateral views of the chest demonstrate the lungs to be symmetrically aerated without evidence of mass, infiltrate or effusion. The cardiomediastinal contours are unremarkable. Degenerative morley es and multiple chronic compression deformities are noted within the thoracic spine. CONCLUSION: 1. No acute cardiopulmonary disease. 2. Degenerative changes and multiple chronic compression deformities involving the thoracic spine. Erlin Ulloa MD on December 19, 2017 at 12:03 Board Certified Radiologist. This report was verified electronically.
[2017-12-19] MEDS ORDERED: MELOXICAM 7.5 MG TAB PO PRN (13:00)
[2017-12-19] MEDS: predniSONE 20 MG TAB PO SCH (13:40)
[2017-12-19] MEDS: BENZONATATE 100 MG CAP PO PRN (16:11)
[2017-12-19] MEDS: traMADol HCL 50 MG TAB PO PRN (16:11)
--- NOTE | 2017-12-19 18:19 | HHI.PR ---
Subjective Remarks Patient reported started to feeling little better today, creatinine is 4.6 Afebrile but weak and debilitated Lettuce Cutter switch patient to p.o. Lasix Objective Vitals Vital Signs Date Time Temp Pulse Resp B/P (MAP) Pulse Ox O2 Delivery O2 Flow Rate FiO2 12/19/17 16:45 98.1 83 20 157/71 (99) 96 12/19/17 16:00 92 12/19/17 13:00 Room Air 12/19/17 12:00 100 12/19/17 12:00 97.8 72 20 112/57 (75) 95 12/19/17 09:45 Room Air 12/19/17 08:09 97 21 12/19/17 08:00 98.3 73 20 143/83 (103) 95 12/19/17 08:00 82 12/19/17 04:06 68 12/19/17 04:00 Room Air 12/19/17 04:00 97.4 77 17 142/65 (90) 94 12/19/17 00:00 97.5 87 19 124/63 (83) 95 12/19/17 00:00 Room Air 12/19/17 00:00 81 12/18/17 22:15 18 12/18/17 20:30 Room Air 12/18/17 20:00 98.1 88 17 131/60 (83) 95 12/18/17 19:58 84 I/O 12/18/17 12/18/17 12/18/17 12/19/17 12/19/17 12/19/17 07:00 15:00 23:00 07:00 15:00 23:00 Intake Total 200 ml 480 ml Output Total 800 ml 600 ml Balance -600 ml 480 ml -600 ml Intake Oral 200 ml 480 ml Output Urine Total 800 ml 600 ml # Bowel Movements 1 0 Result Diagram: 12/16/17 0818 12/19/17 0730 Objective Remarks GENERAL: This is a well-nourished, well-developed patient, in no apparent distress. SKIN: No rashes, warm and dry HEAD: Atraumatic. Normocephalic. EYES: PERRLA . No scleral icterus. ENT: No bleeding, or drainage, Airway patent. NECK: Trachea midline. Supple CARDIOVASCULAR: RRR, no gallops, or rubs. RESPIRATORY: Fair air entry bilaterally. No W, R, or R GASTROINTESTINAL: Abdomen soft, non-tender, nondistended. Positive bowel sounds MUSCULOSKELETAL: Extremities without clubbing, cyanosis, or edema. Pedal pulses appreciated NEUROLOGICAL: Awake and alert. Moves all extremity. Normal speech.no focal neurological deficit A/P Assessment and Plan Annita january volume for 82 years old male who recently was treated for pneumonia and CHF presented with worsening short of breath Acute CHF exacerbation Elevated BNP Arthritis History of recent pneumonia SEVERINO on CKD stage IV Hypertension Hyperlipidemia History of TIA status post left CEA BPH DVT prophylaxis Plan: 12/17: Continue current plan as below, monitor BMP and BNP, BNP dropped to 1103 however creatinine increased to 4.2 12/18: Appreciate renal consultation recommended backing off on diuretics make it every other day and monitor BMP, patient complained of arthritis we cannot use NSAIDs due to renal failure, consider Mobic and dose of steroid, Ultram 12/19: Renal change Lasix to p.o., continue monitoring, I started on prednisone 20 mg and Mobic and changes pain regimen to Ultram for his arthritis, encourage ambulating, PT assessment for need of rehab A/P: Initially patient started on 80 mg of Lasix IV per nephrology appreciate their consult Continue on Lasix 40 IV daily Strict KAITY Monitor BMP and BNP Patient received a dose of Zithromax and Rocephin in ED, however I do not see significant clinical sign of active pneumonia especially that the patient finished a full dose of antibiotic, no leukocytosis or fever or chills, no infiltrate on a chest x-ray, I will continue monitoring off antibiotic Check 2D echo Continue aspirin Proscar Cardura Prozac tamsulosin pravastatin from patient med rec DVT prophylaxis with heparin and SCD Juan Carlos Olsen MD Dec 19, 2017 18:19
[2017-12-19] MEDS: FINASTERIDE 5 MG TAB PO SCH (21:24)
[2017-12-19] MEDS: TAMSULOSIN HCL 0.4 MG CAP PO SCH (21:24)
[2017-12-20] VITALS (8 sets, daily range): BP systolic 143–160; BP diastolic 71–86; PULSE 69–93; RESP 18–20; TEMP 97.4–98.4; O2SAT 95–99
[2017-12-20] MEDS: HEPARIN SODIUM - SQ 10,000 UNITS/ML VIAL SQ SCH ×2 (05:22→14:00)
[2017-12-20] MEDS: BENZONATATE 100 MG CAP PO PRN (05:24)
[2017-12-20] MEDS: traMADol HCL 50 MG TAB PO PRN (05:24)
[2017-12-20] MEDS: RESP: ALBUTEROL 2.5 MG/IPRATROPIUM 0.5 MG NEB (SCH) NEB ×2 (08:02→14:00)
[2017-12-20] MEDS: predniSONE 20 MG TAB PO SCH (08:26)
[2017-12-20] MEDS: PRAVASTATIN SOD 40 MG TAB PO SCH (08:26)
[2017-12-20] MEDS: FUROSEMIDE 40 MG TAB PO SCH (08:26)
[2017-12-20] MEDS: DOCUSATE SODIUM 50 MG/SENNA 8.6 MG TAB PO SCH (08:26)
[2017-12-20] MEDS: FLUoxetine HCL 20 MG CAP PO SCH (08:26)
[2017-12-20] MEDS: ASPIRIN EC 81 MG TABEC PO SCH (08:26)
[2017-12-20] MEDS: DOXAZOSIN MESYLATE 4 MG TAB PO SCH (08:26)
[2017-12-20 09:58] LABS: AUTOMATED NEUTROPHIL # 6.8 TH/MM3 (1.8-7.7); BASOPHIL # 0.1 TH/MM3 (0-0.2); BASOPHIL % 0.6 % (0.0-2.0); EOSINOPHIL % 0.2 % (0.0-4.0); HEMATOCRIT 23.6 % (39.0-51.0); LYMPHOCYTE # 0.9 TH/MM3 (1.0-4.8); MEAN CELL VOLUME 88.7 FL (80.0-100.0); MEAN CORPUSCULAR HEMOGLOBIN 30.1 PG (27.0-34.0); MEAN PLATELET VOLUME 8.6 FL (7.0-11.0); MONO % 6.8 % (0.0-8.0); MONOCYTE # 0.6 TH/MM3 (0-0.9); NEUT % 81.4 % (16.0-70.0); PLATELET COUNT 306 TH/MM3 (150-450); RED BLOOD COUNT 2.66 MIL/MM3 (4.50-5.90); RED CELL DISTRIBUTION WIDTH 15.3 % (11.6-17.2); WHITE BLOOD COUNT 8.4 TH/MM3 (4.0-11.0)
--- NOTE | 2017-12-20 10:15 | HHI.NPPN ---
Subjective Renal Failure: Chronic, Acute, Stage IV Interval History Labs are in process. He feels better, shortness of breath improved. Still coughing. (Sofia Arzate) Review of Systems General Constitutional: Fatigue (Sofia Arzate) Respiratory Lungs: SOB, Cough, Sputum (Sofia Arzate) Objective Data Data Vital Signs Date Time Temp Pulse Resp B/P (MAP) Pulse Ox O2 Delivery O2 Flow Rate FiO2 12/20/17 09:15 Room Air 12/20/17 08:09 97.6 71 18 152/79 (103) 99 12/20/17 08:04 99 12/20/17 08:00 77 12/20/17 06:54 17 12/20/17 04:04 69 12/20/17 04:00 Room Air 12/20/17 04:00 97.4 73 20 143/71 (95) 95 12/20/17 00:00 Room Air 12/20/17 00:00 98.4 91 18 160/73 (102) 95 12/19/17 23:58 82 12/19/17 21:30 Room Air 12/19/17 20:12 87 12/19/17 20:00 98.4 88 17 147/65 (92) 97 12/19/17 19:56 97 12/19/17 18:50 Room Air 12/19/17 16:45 98.1 83 20 157/71 (99) 96 12/19/17 16:00 92 12/19/17 13:00 Room Air 12/19/17 12:00 100 12/19/17 12:00 97.8 72 20 112/57 (75) 95 (Sofia Arzate) -: 12/20/17 0840 12/19/17 0730 Imaging Last 72 hours Impressions Chest X-Ray 12/19/17 0000 Signed Impressions: Service Date/Time: Tuesday, December 19, 2017 11:50 - CONCLUSION: 1. No acute cardiopulmonary disease. 2. Degenerative changes and multiple chronic compression deformities involving the thoracic spine. Erlin Ulloa MD Renal Ultrasound 12/18/17 0000 Signed Impressions: Service Date/Time: Monday, December 18, 2017 10:43 - CONCLUSION: 1. The kidneys are abnormally increased in echotexture most characteristic of medical renal disease. There is no definite hydronephrosis. The right kidney is mildly atrophic. 2. Multiple bilateral simple appearing cysts. 3. Tiny nonobstructing left renal calculus. 4. Cholelithiasis incidentally noted. Lukasz Mcknight MD (Sofia Arzate) Physical Exam General Appearance: Well Developed, Well Nourished, No Acute Distress, Comfortable (Sofia Arzate TREE TRIMMER HELPER) Neck Neck Exam: Neck Supple (Sofia Arzate TREE TRIMMER HELPER) Pulmonary Resp Exam: No Distress, Crackles, Rhonchi, Decreased Bases (Sofia Arzate TREE TRIMMER HELPER) Cardiology CV Exam: Good Perfusion, Irregular, Arrhythmia (Sofia Arzate TREE TRIMMER HELPER) Gastrointestinal/Abdomen GI Exam: Soft, Non-Tender, Bowel Sounds Present (Sofia Arzate TREE TRIMMER HELPER) Musculoskeletal MS Exam: Normal Gait, Normal Tone, Good Strength (Sofia ArzateP) Integumentary Skin Exam: Warm, Dry, Intact (Sofia Arzate TREE TRIMMER HELPER) Extremeties Extremities Exam: No Edema, Pedal Pulses Palpable (Sofia Arzate TREE TRIMMER HELPER) Neurologic Neuro Exam: Alert, Awake, Oriented, Speech Clear, Moving All Extremities (Sofia Arzate) Assessment/Plan Discussed Condition With: Patient Assessment Summary: SEVERINO/Acute Renal Failure, CHF, Hypertension, CKD Stage IV Problem List: (1) Chronic kidney disease, stage IV (severe) ICD Codes: N18.4 - Chronic kidney disease, stage 4 (severe) Plan: His baseline runs 3.5, GFR 17 Repeat labs in process Renal US showing atrophic right kidney He is non oliguric. He is not in need of dialysis at this time, he has been educated outpatient and is leaning towards PD. Will follow with Wendy Marion after discharge to make plans. Avoid nephrotoxic agents, Mobic was stopped. Avoid IVF. (2) Shortness of breath ICD Codes: R06.02 - Shortness of breath Plan: Change diuretics to 40 mg po daily, Lasix. Plan He is requesting discharge no earlier than Monday due to social considerations. (Sofia Arzate) Plan patient was seen and examined. Renal function is worse. He is very close to dialysis. Agree with above assessment and plan. (Joel Saenz MD) Sofia Arzate Dec 20, 2017 10:15 Joel Saenz MD Dec 21, 2017 14:16
[2017-12-20 10:32] LABS: ALBUMIN 2.8 GM/DL (3.4-5.0); BICARBONATE 17.9 MEQ/L (21.0-32.0); CALCIUM 8.7 MG/DL (8.5-10.1); CREATININE 5.03 MG/DL (0.60-1.30); PHOSPHORUS 4.5 MG/DL (2.5-4.9)
[2017-12-20] MEDS ORDERED: TRAM50 PO (11:16)
[2017-12-20] MEDS ORDERED: FURO40TA PO (11:16)
--- NOTE | 2017-12-20 11:17 | HHI.FF ---
Face to Face Verification Diagnosis: (1) Chronic kidney disease, stage IV (severe) (2) CHF (congestive heart failure) (3) Shortness of breath Physical Therapy Order: Evaluate and Treat Occupational Therapy Order: Evaluate and Treat Home Health Nursing Order: Medical education CHF education Nursing assessment with vital signs I have seen patient Douglas Keenan on 12/20/17. My clinical findings support the need for the requested home health care services because: Ltd mobility - disease progression Deconditioned w/ increased weakness I certify that my clinical findings support that this patient is homebound because: Hx COPD- exertion dyspnea/weakness Unsafe to leave home unassisted Juan Carlos Olsen MD Dec 20, 2017 11:17
--- NOTE | 2017-12-20 14:42 | HHI.PR ---
Subjective Remarks pt refused to be seen today he is upset that he is not going to rehab Objective Vitals Vital Signs Date Time Temp Pulse Resp B/P (MAP) Pulse Ox O2 Delivery O2 Flow Rate FiO2 12/20/17 12:50 Room Air 12/20/17 12:21 97.8 82 18 160/86 (110) 99 12/20/17 12:00 93 12/20/17 09:15 Room Air 12/20/17 08:09 97.6 71 18 152/79 (103) 99 12/20/17 08:04 99 12/20/17 08:00 77 12/20/17 06:54 17 12/20/17 04:04 69 12/20/17 04:00 Room Air 12/20/17 04:00 97.4 73 20 143/71 (95) 95 12/20/17 00:00 Room Air 12/20/17 00:00 98.4 91 18 160/73 (102) 95 12/19/17 23:58 82 12/19/17 21:30 Room Air 12/19/17 20:12 87 12/19/17 20:00 98.4 88 17 147/65 (92) 97 12/19/17 19:56 97 12/19/17 18:50 Room Air 12/19/17 16:45 98.1 83 20 157/71 (99) 96 12/19/17 16:00 92 I/O 12/19/17 12/19/17 12/19/17 12/20/17 12/20/17 12/20/17 07:00 15:00 23:00 07:00 15:00 23:00 Intake Total 200 ml Output Total 600 ml 900 ml Balance -600 ml -700 ml Intake Oral 200 ml Output Urine Total 600 ml 900 ml # Bowel Movements 0 0 Result Diagram: 12/20/17 0840 12/20/17 0840 Objective Remarks GENERAL: This is a well-nourished, well-developed patient, in no apparent distress. SKIN: No rashes, warm and dry HEAD: Atraumatic. Normocephalic. MUSCULOSKELETAL: Extremities without clubbing, cyanosis, or edema. Pedal pulses appreciated NEUROLOGICAL: Awake and alert. Moves all extremity. Normal speech.no focal neurological deficit A/P Assessment and Plan 82 years old male who recently was treated for pneumonia and CHF presented with worsening short of breath Acute CHF exacerbation Elevated BNP Arthritis History of recent pneumonia SEVERINO on CKD stage IV Hypertension Hyperlipidemia History of TIA status post left CEA BPH DVT prophylaxis Plan: 12/17: Continue current plan as below, monitor BMP and BNP, BNP dropped to 1103 however creatinine increased to 4.2 12/18: Appreciate renal consultation recommended backing off on diuretics make it every other day and monitor BMP, patient complained of arthritis we cannot use NSAIDs due to renal failure, consider Mobic and dose of steroid, Ultram 12/19: Renal change Lasix to p.o., continue monitoring, I started on prednisone 20 mg and Mobic and changes pain regimen to Ultram for his arthritis, encourage ambulating, PT assessment for need of rehab 12/19:stable but upset about not going to rehab A/P: Initially patient started on 80 mg of Lasix IV per nephrology appreciate their consult Continue on Lasix 40 IV daily Strict KAITY Monitor BMP and BNP Patient received a dose of Zithromax and Rocephin in ED, however I do not see significant clinical sign of active pneumonia especially that the patient finished a full dose of antibiotic, no leukocytosis or fever or chills, no infiltrate on a chest x-ray, I will continue monitoring off antibiotic Check 2D echo Continue aspirin Proscar Cardura Prozac tamsulosin pravastatin from patient med rec DVT prophylaxis with heparin and SCD Juan Carlos Olsen MD Dec 20, 2017 14:42
== END 2017-12-20 16:31 ==
LOC: NEPE 11:19 → INTOOBSV 16:46 → NEDA 16:46 → N04A 19:29
PROVIDERS: ADMIT Internal Medicine; ATTEND Internal Medicine
DX: I50.9 Heart failure, unspecified (principal); I13.0 Hypertensive heart and chronic kidney disease with heart failure and stage 1 through stage 4 chronic kidney disease, or unspecified chronic kidney disease; N18.4 Chronic kidney disease, stage 4 (severe); J44.9 Chronic obstructive pulmonary disease, unspecified; R10.84 Generalized abdominal pain; E78.00 Pure hypercholesterolemia, unspecified; K21.9 Gastro-esophageal reflux disease without esophagitis; I45.10 Unspecified right bundle-branch block; I44.4 Left anterior fascicular block; R94.31 Abnormal electrocardiogram [ECG] [EKG]; N17.9 Acute kidney failure, unspecified; N20.0 Calculus of kidney; K80.20 Calculus of gallbladder without cholecystitis without obstruction; N26.1 Atrophy of kidney (terminal); N40.0 Benign prostatic hyperplasia without lower urinary tract symptoms; M19.90 Unspecified osteoarthritis, unspecified site; Z86.73 Personal history of transient ischemic attack (TIA), and cerebral infarction without residual deficits; Z87.11 Personal history of peptic ulcer disease; Z87.891 Personal history of nicotine dependence; Z79.899 Other long term (current) drug therapy; Z79.82 Long term (current) use of aspirin
CPT/HCPCS: 71045; 71046; 76775; 80048; 80069; 81001; 82550; 82948; 83605; 83735; 83880; 84100; 84484; 85025; 85610; 85730; 87040; 93005; 93306; 94618; 94640; 94664; 96365; 96366; 96372; 96375; 96376; 97162; 97167; 99285; G0378; G8987; G8988; G8989; J0456; J0696; J1644; J1940; J2930; J7050; J7512; 96374